=== PATIENT | female | born 1980 | race Caucasian/White ===

== ENCOUNTER 2020-03-20 15:03 | Outpatient (REF) | payer OTHER, SELFPAY ==
[2020-03-20 15:34] LABS: COVID-19 Test Negative (Negative)
== END 2020-03-20 15:04 | disposition home or self-care (01) ==
LOC: HO.EMPCOV 15:03
PROVIDERS: Visit Provider Internal Medicine
DX: Z20.828 Contact with and (suspected) exposure to other viral communicable diseases (principal)
CPT/HCPCS: 87635

== ENCOUNTER 2020-05-22 13:24 | Outpatient (REF) | payer OTHER, SELFPAY ==
[2020-05-23 09:47] LABS: C. trachomatis RNA TMA NOT DETECTED (NOT DETECTED); N. gonorrhoeae RNA TMA NOT DETECTED (NOT DETECTED)
[2020-05-23 12:03] LABS: BV Int Neg Control Negative (Negative); BV Int Pos Control Positive (Positive)
== END 2020-05-22 13:25 | disposition home or self-care (01) ==
LOC: HO.LAB 13:24
PROVIDERS: PCP Internal Medicine; Visit Provider Obstetrics & Gynecology
DX: N92.3 Ovulation bleeding (principal); R19.00 Intra-abdominal and pelvic swelling, mass and lump, unspecified site; Z11.3 Encounter for screening for infections with a predominantly sexual mode of transmission
CPT/HCPCS: 36415; 87480; 87491; 87510; 87591; 87660; 99212

== ENCOUNTER 2020-05-26 14:13 | Outpatient (REF) | payer OTHER, SELFPAY ==
--- NOTE | ~2020-05-26 | US_ITS ---
EXAMINATION: US PELVIS US TRANSVAGINAL CLINICAL INFORMATION: Intra-abdominal and pelvic swelling, mass or lump. COMPARISON: None TECHNIQUE: Transabdominal and transvaginal ultrasound the pelvis. FINDINGS: The uterus is retroverted and retroflexed measuring 4.7 x 4.3 x 6.8 cm. The uterus is heterogeneous. The endometrial thickness measures 1.25 cm. Right ovary measures 2.4 x 2.0 x 1.5 cm and volume 3.7 mL. No focal lesion seen. Left ovary measures 3.4 x 1.8 x 2.4 cm and volume 7.6 mL. There is a small corpus luteal cyst measuring 1.9 x 1.6 x 1.5 cm. There is a small amount of free fluid in the cul-de-sac. US/US pelvic complete IMPRESSION: Small corpus luteal cyst left ovary. Unremarkable right ovary. Small amount of free fluid in the cul-de-sac. The uterus is unremarkable.
--- NOTE | ~2020-05-26 | US_ITS ---
EXAMINATION: US PELVIS US TRANSVAGINAL CLINICAL INFORMATION: Intra-abdominal and pelvic swelling, mass or lump. COMPARISON: None TECHNIQUE: Transabdominal and transvaginal ultrasound the pelvis. FINDINGS: The uterus is retroverted and retroflexed measuring 4.7 x 4.3 x 6.8 cm. The uterus is heterogeneous. The endometrial thickness measures 1.25 cm. Right ovary measures 2.4 x 2.0 x 1.5 cm and volume 3.7 mL. No focal lesion seen. Left ovary measures 3.4 x 1.8 x 2.4 cm and volume 7.6 mL. There is a small corpus luteal cyst measuring 1.9 x 1.6 x 1.5 cm. There is a small amount of free fluid in the cul-de-sac. US/US transvaginal IMPRESSION: Small corpus luteal cyst left ovary. Unremarkable right ovary. Small amount of free fluid in the cul-de-sac. The uterus is unremarkable.
== END 2020-05-26 14:14 | disposition home or self-care (01) ==
LOC: HO.HMGCX 14:13
PROVIDERS: Visit Provider Obstetrics & Gynecology
DX: R19.00 Intra-abdominal and pelvic swelling, mass and lump, unspecified site (principal)
CPT/HCPCS: 76830; 76856

== ENCOUNTER 2020-09-28 10:06 | Outpatient (REF) | payer OTHER, SELFPAY ==
[2020-09-28 10:31] LABS: COVID-19 Test Negative (Negative)
== END 2020-09-28 10:07 | disposition home or self-care (01) ==
LOC: HO.EMPCOV 10:06
PROVIDERS: Visit Provider Internal Medicine
DX: Z20.822 Contact with and (suspected) exposure to COVID-19 (principal)
CPT/HCPCS: 36415; 87635; C9803

== ENCOUNTER 2020-10-14 16:25 | Outpatient (REF) | payer OTHER, SELFPAY ==
[2020-10-14 16:53] LABS: COVID-19 Test Negative (Negative)
== END 2020-10-14 16:26 | disposition home or self-care (01) ==
LOC: HO.LAB 16:25
PROVIDERS: Visit Provider Internal Medicine
DX: Z20.822 Contact with and (suspected) exposure to COVID-19 (principal)
CPT/HCPCS: 36415; 87635; C9803

== ENCOUNTER 2020-10-22 08:08 | Outpatient (REF) | payer OTHER, SELFPAY ==
[2020-10-25 04:21] LABS: HPV mRNA E6/E7 rflx Not Detected (Not Detected)
== END 2020-10-22 08:09 | disposition home or self-care (01) ==
LOC: HO.LAB 08:08
PROVIDERS: Visit Provider Advanced Practice Midwife
DX: Z01.419 Encounter for gynecological examination (general) (routine) without abnormal findings (principal); Z98.890 Other specified postprocedural states
CPT/HCPCS: 87624; 88142

== ENCOUNTER 2021-05-21 08:42 | Outpatient (REF) | payer OTHER, SELFPAY ==
[2021-05-21 16:23] LABS: CT PCR NOT DETECTED (Not Detect.); NG PCR NOT DETECTED (Not Detect.)
[2021-05-22 09:59] LABS: BV Int Neg Control Negative (Negative); BV Int Pos Control Positive (Positive)
== END 2021-05-21 08:43 | disposition home or self-care (01) ==
LOC: HO.LAB 08:42
PROVIDERS: Visit Provider Advanced Practice Midwife
DX: Z11.3 Encounter for screening for infections with a predominantly sexual mode of transmission (principal); Z20.2 Contact with and (suspected) exposure to infections with a predominantly sexual mode of transmission
CPT/HCPCS: 87480; 87491; 87510; 87591; 87660; 99212

== ENCOUNTER 2021-06-20 15:54 | Emergency (ER) | payer OTHER, SELFPAY ==
--- NOTE | ~2021-06-20 | US_ITS ---
EXAMINATION: US RETROPERITONEAL LIMITED (RENAL ONLY) CLINICAL INFORMATION: Flank pain, evaluate for hydronephrosis. COMPARISON: None TECHNIQUE: Real-time imaging by the tree shear operator FINDINGS: The right kidney is 10.9 x 4 x 5.8 cm. There is no hydronephrosis. Normal-appearing. The left kidney is 9.6 x 6.4 x 6.5 cm. Again no hydronephrosis or stone. Normal-appearing. US/US renal BI IMPRESSION: No evidence of hydronephrosis. No stone is seen
--- NOTE | ~2021-06-20 | US_ITS ---
EXAMINATION: US PELVIS CLINICAL INFORMATION: Right lower and left lower pelvic pain with question of ovarian torsion COMPARISON: Pelvic ultrasound 06/05/2020 TECHNIQUE: Ultrasound of the pelvis is performed using both transabdominal and transvaginal transducers along with Doppler. Transvaginal imaging is performed due to inadequate visualization transabdominally. FINDINGS: Uterus: The uterus is anteverted and measures 8.7 x 5.8 x 6.2 cm. The double wall endometrial thickness is 0.9 mm. The uterus is smooth in contour and has normal myometrial echogenicity. No visible fibroid. Adnexa: Both ovaries are visualized. There is normal color flow to the adnexa. There is no ovarian torsion. There is no pelvic ascites or fluid collection. Right ovary measures 2.8 x 1.6 x 1.7 cm. Left ovary measures 2.9 x 1.7 x 1.8 cm. US/US pelvic ovarian doppler IMPRESSION: Negative pelvic ultrasound exam. No evidence of ovarian torsion.
--- NOTE | ~2021-06-20 | US_ITS ---
EXAMINATION: US PELVIS CLINICAL INFORMATION: Right lower and left lower pelvic pain with question of ovarian torsion COMPARISON: Pelvic ultrasound 06/05/2020 TECHNIQUE: Ultrasound of the pelvis is performed using both transabdominal and transvaginal transducers along with Doppler. Transvaginal imaging is performed due to inadequate visualization transabdominally. FINDINGS: Uterus: The uterus is anteverted and measures 8.7 x 5.8 x 6.2 cm. The double wall endometrial thickness is 0.9 mm. The uterus is smooth in contour and has normal myometrial echogenicity. No visible fibroid. Adnexa: Both ovaries are visualized. There is normal color flow to the adnexa. There is no ovarian torsion. There is no pelvic ascites or fluid collection. Right ovary measures 2.8 x 1.6 x 1.7 cm. Left ovary measures 2.9 x 1.7 x 1.8 cm. US/US pelvic and transvaginal IMPRESSION: Negative pelvic ultrasound exam. No evidence of ovarian torsion.
[2021-06-20 17:51] VITALS: BP 124/80; PULSE 70; RESP 18; TEMP 36.3; O2SAT 100; BMI 26.9
[2021-06-20 18:31] LABS: Appearance Urine CLEAR; Color Urine YELLOW; Glucose Urine UA NEG (NEG); Leukocyte Esterase Urine NEG (NEG); Nitrite Urine NEG (NEG); PH 5.5 (5.0-8.0); Specific Gravity - Urine 1.015 (1.005-1.025); UACC Culture Trigger NO; Urine Blood TRACE (NEG); Urine Ketones NEG (NEG); Urine Protein NEG (NEG-TRACE)
[2021-06-20 19:06] LABS: Bacteria Urine TRACE /LPF; Mucus Urine TRACE /LPF; Squamous Epithelial Cell Urine 1+ /LPF; WBC Urine 0-2 /HPF (0-4)
[2021-06-20 19:31] VITALS: BP 126/79; PULSE 68; RESP 16; TEMP 36.9; O2SAT 100
--- NOTE | 2021-06-20 19:57 | ED.ABDPAIN ---
HPI - Abdominal Pain General Chief Complaint: Abdominal Pain Stated Complaint: lower abd pain Time Seen by Provider: 06/20/21 19:37 Source: patient Mode of arrival: ambulatory Limitations: no limitations History of Present Illness HPI narrative: 41-year-old female who presents emergency department for evaluation of abdominal pain. She states that yesterday in the morning after eating breakfast she developed pain in her stomach. She points to her epigastric area. She states that the pain was a constant, stabbing pain which was 10/10. The patient states that she went to [facility] and was seen in the emergency department. She states that she had blood work IV fluids and Tylenol with some improvement but she still had pain when she left the emergency department. She states that today at around 15:00 hours she developed pain in her lower abdomen. She describes the pain as a constant, contraction like pain which came on suddenly. The pain is 8/10. She states that the pain is a little more prominent in the right lower aspect of her abdomen it does radiate to her right flank area. She states that she had associated chills. She had nausea with no vomiting. She states that yesterday she had 4 loose diarrheal stools and had 2 loose diarrheal stools today. She denied vaginal discharge. She states that her last menstrual period was 1 month prior. The patient states that she had an appendectomy and cholecystectomy in the past. Related Data Home Medications Medication Instructions Recorded Confirmed cholecalciferol (vitamin D3) 25 25 mcg PO DAILY 05/22/20 mcg (1,000 unit) tablet propranolol 20 mg tablet 20 mg PO BID 05/22/20 Previous Rx's Medication Instructions Recorded vitamin with calcium 1 tab PO DAILY #30 tab 05/21/21 no.72-iron 27 mg-folic acid 1 mg tablet ( Vitamins Plus Low Iron) doxycycline hyclate 100 mg tablet 100 mg PO Q12H 14 Days #28 tab 06/20/21 metronidazole 500 mg tablet 500 mg PO BID 14 Days #28 tab 06/20/21 Allergies Allergy/AdvReac Type Severity Reaction Status Date / Time Penicillins Allergy Mild ITCHING Verified 06/20/21 17:54 promethazine [From Phenergan] Allergy Mild ITCHING, Verified 06/20/21 17:54 rash vancomycin [Vancomycin] Allergy Mild HIVES Verified 06/20/21 17:54 penicillin V Allergy Unknown hives, Verified 06/20/21 17:54 swelling Promethazine HCl Allergy Unknown hives Uncoded 06/20/21 17:54 Propylene Glycol Allergy Unknown severe acne Uncoded 06/20/21 17:54 Povidone Iodine Swabstick AdvReac Unknown rash Uncoded 06/20/21 17:54 Review of Systems Review of Systems Yes all other systems are reviewed and are negative [facility] Past Medical History [facility] Narrative: Past medical history: Hypertension. Past surgical history: Appendectomy, cholecystectomy, LEEP procedure. 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 She denies tobacco use. She denies alcohol use. She denies drug use. Medical History Abnormal Pap smear of cervix Hypertension Surgical History H/O LEEP History of cholecystectomy Family History Family History Maternal Grandfather Colon cancer Social History Social History Alcohol intake: never Advance Directives: No Patient : No Gender identity: Female Physical Exam ED Vital Signs: Vital Signs - 24 hr 06/20/21 17:51 06/20/21 19:31 06/20/21 23:27 Temperature 97.3 F 98.4 F 98.6 F Pulse Rate 70 68 75 Respiratory Rate 18 16 18 Blood Pressure 124/80 126/79 127/78 Pulse Oximetry 100 100 98 BMI result Body Mass Index 26.9 Const General: cooperative and no acute distress Orientation/consciousness: oriented to person and oriented to place Limitations: no limitations [facility] Head: Yes normal to inspection, Yes normocephalic and Yes atraumatic Ears: external ears normal General nose exam: Normal external nose present Face and sinus: Yes normal facial exam Mouth: Normal oral and palatal mucosa present Throat: Yes posterior oropharynx normal Eyes General: appearance normal, both eyes and all related structures Pupils: Equal, round and reactive pupils present Neck Neck: Yes normal visual inspection, Yes no lymphadenopathy, Yes trachea midline and Yes supple Chest Chest palpation & inspection: normal inspection of the chest and normal palpation of entire chest wall Resp Effort & Inspection: normal respiratory effort and able to speak in complete sentences Auscultation: clear to auscultation bilaterally Cardio Rate: regular rate Rhythm: regular rhythm Heart sounds: S1 normal heart sound present, S2 normal heart sound present and no murmurs GI Inspection: Yes normal to inspection Palpation (GI): Soft to palpation, Tenderness to palpation present (GI) in the LLQ (Moderate), in the RLQ (Moderate) and suprapubicly (Moderate) and no guarding Auscultation: normal bowel sounds General: Yes no CVA tenderness External Female Exam: normal external appearance Speculum Exam - Vagina: abnormal vaginal discharge (Thick, white) Speculum Exam - Cervix: normal appearance of the cervix, Cervical os closed, Abnormal cervical discharge present (Thick white) and Cervical tenderness present Bimanual exam- vagina & uterus: Cervical tenderness present, cervical motion tenderness (Moderate) and Uterine tenderness (Moderate) Bimanual Exam- Adnexa, other: tender (Moderate right, mild left) bilaterally Back/Spine/Pelvis Back: no CVA tenderness Skin General skin exam: no rashes or lesions noted Neuro General: oriented to person and oriented to place Cranial nerves: Yes CN's II-XII intact bilaterally and Yes Equal, round and reactive pupils present Cognition (Neuro): normal cognition Motor exam (neuro): 5/5 motor strength present throughout Extrem General: Yes normal to inspection Psych Appearance: grossly normal Speech and movement: Normal speech and movement present Affect: normal affect Attitude: cooperative Thought process: Normal thought process present Thought content: Normal thought content present Course Course Course Narrative: 41-year-old female who presents emergency department for evaluation of abdominal pain x2 days. The pain yesterday was located in her epigastric area, she was seen at [facility] in the emergency department treated with IV fluids and Tylenol with improvement of her symptoms but not complete resolution of her abdominal pain. At 15:00 hours today she developed a different abdominal pain in her lower abdomen. She has had associated chills, nausea and diarrheal stools. She has a history of an appendectomy and cholecystectomy. Vital signs were normal. Examination did reveal lower abdominal tenderness. Differential includes was not limited to ovarian cyst, pelvic inflammatory disease, ovarian cyst, kidney stone, UTI, PID. Laboratory evaluation was ordered. Patient will be treated with Zofran 4 mg IV, Toradol 15 mg IV and normal saline x1 L. 2334: Laboratory evaluation: WBC low 3900, AST elevated 33, beta-hCG less than 2, urinalysis negative Radiology evaluation: Pelvic and transvaginal ultrasound revealed no torsion, no ovarian cyst. Bilateral renal ultrasound revealed no hydronephrosis. The patient did get significant improvement with the above treatment. The patient's laboratory evaluation was unremarkable and her ultrasounds did not reveal a clear cause for her symptoms. The patient's pelvic exam however did reveal cervical motion tenderness, uterine tenderness and bilateral adnexal tenderness right greater than left. Patient does have an abnormal appearing discharges well. Clinically, I believe that the patient has pelvic inflammatory disease. She was treated with ceftriaxone 500 mg IM with lidocaine, doxycycline 100 mg orally and Flagyl 500 mg orally. She was given prescriptions for doxycycline and Flagyl for 14 days. She was advised to take Tylenol ibuprofen for pain. She will need to follow-up with her osteopathy doctor for re-evaluation in 10-14 days. MDM - Abdominal Pain Lab Data Result diagrams: 06/20/21 20:24 06/20/21 20:24 Labs: Lab Results 06/20/21 06/20/21 06/20/21 Range/Units 18:15 20:24 20:24 WBC 3.9 L (4.8-10.8) X10*3/uL RBC 4.57 (4.20-5.50) X10*6/uL Hgb 13.9 (12.0-16.0) g/dl Hct 41.4 (37.0-47.0) % MCV 90.6 (80.0-98.0) fL MCH 30.4 (27.0-33.0) pg MCHC 33.6 (31.0-35.0) g/dl RDW 12.9 (11.0-16.0) % Plt Count 184 (160-400) X10*3/uL MPV 9.8 (9.4-12.3) fL Immature Gran % (Auto) 0.5 H (0.0-0.4) % Neut % (Auto) 42.2 L (45-73) % Lymph % (Auto) 36.9 (20-40) % [place] % (Auto) 16.0 H (2-11) % Eos % (Auto) 3.9 (0-4) % Baso % (Auto) 0.5 (0-2) % Lymph # (Auto) 1.4 (1.2-4.9) X10*3/uL [place] # (Auto) 0.6 (0.1-1.2) X10*3/uL Eos # (Auto) 0.2 (0.0-0.4) X10*3/uL Baso # (Auto) 0.0 (0.0-0.2) X10*3/uL Abs Immat Gran (auto) 0.02 (0.00-0.03) X10*3/uL Absolute Neuts (auto) 1.6 L (2.0-8.3) x10*3/uL Absolute Nucleated RBC 0.000 (0.0-0.012) X10*3/uL Nucleated RBC % (auto) 0.0 (0.0-0.2) /100WBC Sodium 139 (135-145) mmol/L Potassium 3.9 (3.3-5.1) mmol/L Chloride 105 (96-108) mmol/L Carbon Dioxide 27 (22-29) mmol/L Anion Gap 11 L (12-20) BUN 5 L (9-16) mg/dL Creatinine 0.83 (0.5-1.4) mg/dL Estim Creat Clear Calc 94.6 Estimated GFR > 60 Random Glucose 89 (60-115) mg/dL Calcium 8.9 (8.4-10.2) mg/dL Total Bilirubin 0.3 (0.0-1.0) mg/dL AST 24 (5-31) U/L ALT 33 H (0-31) U/L Alkaline Phosphatase 62 (39-117) U/L Total Protein 7.2 (6.5-8.0) g/dL Albumin 4.0 (3.5-5.0) g/dL Lipase 25 (8-78) U/L Beta HCG, Quant mIU/mL Urine Color YELLOW Urine Appearance CLEAR Urine pH 5.5 (5.0-8.0) Ur Specific [place] 1.015 (1.005-1.025) Urine Protein NEG (NEG-TRACE) MG/DL Urine Glucose (UA) NEG (NEG) MG/DL Urine Ketones NEG (NEG) MG/DL Urine Blood TRACE (NEG) Urine Nitrite NEG (NEG) Ur Leukocyte Esterase NEG (NEG) Urine RBC 1-4 (0) /HPF Urine WBC 0-2 (0-4) /HPF Ur Squamous Epith Cells 1+ /LPF Urine Bacteria TRACE /LPF Urine Mucus TRACE /LPF 06/20/21 Range/Units 20:24 WBC (4.8-10.8) X10*3/uL RBC (4.20-5.50) X10*6/uL Hgb (12.0-16.0) g/dl Hct (37.0-47.0) % MCV (80.0-98.0) fL MCH (27.0-33.0) pg MCHC (31.0-35.0) g/dl RDW (11.0-16.0) % Plt Count (160-400) X10*3/uL MPV (9.4-12.3) fL Immature Gran % (Auto) (0.0-0.4) % Neut % (Auto) (45-73) % Lymph % (Auto) (20-40) % [place] % (Auto) (2-11) % Eos % (Auto) (0-4) % Baso % (Auto) (0-2) % Lymph # (Auto) (1.2-4.9) X10*3/uL [place] # (Auto) (0.1-1.2) X10*3/uL Eos # (Auto) (0.0-0.4) X10*3/uL Baso # (Auto) (0.0-0.2) X10*3/uL Abs Immat Gran (auto) (0.00-0.03) X10*3/uL Absolute Neuts (auto) (2.0-8.3) x10*3/uL Absolute Nucleated RBC (0.0-0.012) X10*3/uL Nucleated RBC % (auto) (0.0-0.2) /100WBC Sodium (135-145) mmol/L Potassium (3.3-5.1) mmol/L Chloride (96-108) mmol/L Carbon Dioxide (22-29) mmol/L Anion Gap (12-20) BUN (9-16) mg/dL Creatinine (0.5-1.4) mg/dL Estim Creat Clear Calc Estimated GFR Random Glucose (60-115) mg/dL Calcium (8.4-10.2) mg/dL Total Bilirubin (0.0-1.0) mg/dL AST (5-31) U/L ALT (0-31) U/L Alkaline Phosphatase (39-117) U/L Total Protein (6.5-8.0) g/dL Albumin (3.5-5.0) g/dL Lipase (8-78) U/L Beta HCG, Quant < 2 mIU/mL Urine Color Urine Appearance Urine pH (5.0-8.0) Ur Specific [place] (1.005-1.025) Urine Protein (NEG-TRACE) MG/DL Urine Glucose (UA) (NEG) MG/DL Urine Ketones (NEG) MG/DL Urine Blood (NEG) Urine Nitrite (NEG) Ur Leukocyte Esterase (NEG) Urine RBC (0) /HPF Urine WBC (0-4) /HPF Ur Squamous Epith Cells /LPF Urine Bacteria /LPF Urine Mucus /LPF Discharge Plan Discharge Clinical Impression: Acute pelvic inflammatory disease Patient Disposition: Home, Self-Care Additional Instructions: Pelvic inflammatory disease instructions: Your presentation and physical findings are consistent with pelvic inflammatory disease (PID). Approximately 30% of the time, pelvic inflammatory disease is caused by sexually transmitted diseases such as Trichomonas, gonorrhea or chlamydia. Approximately 70% of the time, pelvic inflammatory disease is caused by abnormal bacteria (anaerobic bacteria) in your vagina that can cause an infection Medications You received ceftriaxone 500 mg intramuscularly here in the emergency department Take doxycycline 100 mg, 1 pill twice a day for 14 days. Take metronidazole 500 mg, 1 pill twice a day for 14 days. These 3 antibiotics treat sexually transmitted diseases such as gonorrhea, chlamydia and Trichomonas as well as anaerobic bacteria that can cause pelvic inflammatory disease. Take ibuprofen 200 mg pills, 3 pills every 6 hours as needed for pain. Take Tylenol (acetaminophen) 500 mg pills, 2 pills every 4 to 6 hours as needed for pain. Follow-Up Follow-up with your gynecology in 10-14 days. Pending laboratory tests: The doctor that follows up will need to review the following results with you: Bacterial vaginosis testing Gonorrhea and chlamydia (cervical swab) Trichomonas testing You can also check these results on the patient portal. Return precautions: Please return to the emergency department if your symptoms get worse if your pain does not go away in 24-48 hours or if you develop any symptoms that are concerning to you. Please see work note Prescriptions: New metronidazole 500 mg tablet 500 mg PO BID 14 Days Qty: 28 0RF doxycycline hyclate 100 mg tablet 100 mg PO Q12H 14 Days Qty: 28 0RF No Action cholecalciferol (vitamin D3) 25 mcg (1,000 unit) tablet 25 mcg PO DAILY 0RF propranolol 20 mg tablet 20 mg PO BID 0RF Vitamin Plus Low Iron 27 mg iron- 1 mg tablet 1 tab PO DAILY Qty: 30 11RF Stand Alone Forms: Work/School Release
[2021-06-20 20:28] LABS: MANUAL DIFF FLAG NO
[2021-06-20] MEDS: Ketorolac Tromethamine 15 MG/ML VIAL IVPUSH (20:28)
[2021-06-20 20:29] LABS: Basophils Percent Auto 0.5 % (0-2); Eosinophils Absolute Auto 0.2 X10*3/uL (0.0-0.4); Eosinophils Percent Auto 3.9 % (0-4); Hematocrit 41.4 % (37.0-47.0); Hemoglobin 13.9 g/dl (12.0-16.0); Imm Gran Abs Auto 0.02 X10*3/uL (0.00-0.03); Imm Gran Pct Auto 0.5 % (0.0-0.4); Lymphocytes Absolute Auto 1.4 X10*3/uL (1.2-4.9); Lymphocytes Percent Auto 36.9 % (20-40); Mean Corpuscular HGB Conc 33.6 g/dl (31.0-35.0); Mean Corpuscular Hemoglobin 30.4 pg (27.0-33.0); Mean Corpuscular Volume 90.6 fL (80.0-98.0); Mean Platelet Volume 9.8 fL (9.4-12.3); Monocytes Absolute Auto 0.6 X10*3/uL (0.1-1.2); Neutrophils Absolute Auto 1.6 x10*3/uL (2.0-8.3); Neutrophils Percent Auto 42.2 % (45-73); Platelet Count 184 X10*3/uL (160-400); Red Blood Count 4.57 X10*6/uL (4.20-5.50); Red Cell Distribution Width 12.9 % (11.0-16.0); White Blood Count 3.9 X10*3/uL (4.8-10.8)
[2021-06-20] MEDS: 0.9 % Sodium Chloride 1,000 ML 999 ML IV (20:29)
[2021-06-20 20:46] LABS: Alanine Aminotransferase 33 U/L (0-31); Alkaline Phosphatase 62 U/L (39-117); Anion Gap 11 (12-20); Aspartate Amino Transferase 24 U/L (5-31); Bilirubin Total 0.3 mg/dL (0.0-1.0); Blood Urea Nitrogen 5 mg/dL (9-16); Calcium 8.9 mg/dL (8.4-10.2); Carbon Dioxide 27 mmol/L (22-29); Chloride 105 mmol/L (96-108); Creatinine Clr Calc Pharmacy 94.6; Estimated Glomerular Filt Rate > 60; Glucose Random 89 mg/dL (60-115); Lipase 25 U/L (8-78); Potassium 3.9 mmol/L (3.3-5.1); Sodium 139 mmol/L (135-145); Total Protein 7.2 g/dL (6.5-8.0)
[2021-06-20 20:49] LABS: HCG Quantitative < 2 mIU/mL
[2021-06-20 23:27] VITALS: BP 127/78; PULSE 75; RESP 18; TEMP 37; O2SAT 98
[2021-06-21] MEDS: cefTRIAXone sodium 500 MG, Lidocaine HCl 1 % MPF 1 ML IM (00:11)
--- NOTE | 2021-06-21 00:15 | PC.NURSE ---
Pt medicated per MAY Pt tolerated well No reactions noted Pt refused PO antibiotics. aware. Per MD, pt will get IM shot but will start PO antibiotics tomorrow at home
[2021-06-21 01:23] LABS: CT PCR NOT DETECTED (Not Detect.); NG PCR NOT DETECTED (Not Detect.)
[2021-06-21 10:03] LABS: BV Int Neg Control Negative (Negative); BV Int Pos Control Positive (Positive)
== END 2021-06-21 00:16 | disposition home or self-care (01) ==
PROVIDERS: Emergency Provider Emergency Medicine Emergency Medical Services
DX: N73.0 Acute parametritis and pelvic cellulitis (principal); R10.2 Pelvic and perineal pain; Z79.899 Other long term (current) drug therapy
CPT/HCPCS: 36415; 76775; 76830; 76856; 80053; 81001; 83690; 84702; 85025; 87480; 87491; 87510; 87591; 87660; 93975; 96365; 96366; 99284; J0696; J1885

== ENCOUNTER 2021-11-17 07:37 | Outpatient (REF) | payer OTHER, SELFPAY ==
[2021-11-17 08:05] LABS: COVID-19 Test Negative (Negative); IDNOW Serial# 9DB6401D
== END 2021-11-17 07:38 | disposition home or self-care (01) ==
LOC: HO.LAB 07:37
PROVIDERS: Visit Provider Internal Medicine
DX: Z20.822 Contact with and (suspected) exposure to COVID-19 (principal)
CPT/HCPCS: 87635; C9803

== ENCOUNTER 2021-11-24 08:58 | Outpatient (REF) | payer OTHER, SELFPAY ==
--- NOTE | ~2021-11-24 | MM_ITS ---
EXAMINATION: MM SCREENING DIGITAL BREAST TOMOSYNTHESIS, BILATERAL CLINICAL INFORMATION: Screening. Asymptomatic. The lifetime risk of breast cancer based on the Tyrer-Cuzick Model is 9%. COMPARISON: Mammography: 06/15/2015 (baseline). TECHNIQUE: Digital breast tomosynthesis is performed in both the craniocaudal and mediolateral oblique views along with computer-aided detection (CAD). Synthesized 2D images are generated from the tomosynthesis. FINDINGS: There are scattered areas of fibroglandular density (ACR BI-RADS breast composition Category b). Parenchymal pattern is similar to prior baseline exam. There is no significant mass or architectural abnormality or abnormal calcifications. A small smooth nodule central 8:30 right breast is similar to the prior exam. The axilla and skin contours are unremarkable. MM/MM tomosynthesis screening BI IMPRESSION: No mammographic evidence of malignancy. ASSESSMENT: BI-RADS 2: Benign RECOMMENDATION: Routine annual mammography screening. This patient's information was entered into a reminder system with a target due date for their next mammogram.
== END 2021-11-24 08:59 | disposition home or self-care (01) ==
LOC: HO.MAMMO 08:58
PROVIDERS: Visit Provider Advanced Practice Midwife
DX: Z12.31 Encounter for screening mammogram for malignant neoplasm of breast (principal)
CPT/HCPCS: 77063; 77067

== ENCOUNTER 2021-11-25 14:20 | Outpatient (REF) | payer OTHER, SELFPAY ==
[2021-11-25 14:46] LABS: COVID-19 Test Negative (Negative); IDNOW Serial# 55D5AD1C
== END 2021-11-25 14:21 | disposition home or self-care (01) ==
LOC: HO.LAB 14:20
PROVIDERS: Visit Provider Internal Medicine
DX: Z20.822 Contact with and (suspected) exposure to COVID-19 (principal)
CPT/HCPCS: 87635; C9803

== ENCOUNTER 2021-12-17 11:30 | Outpatient (REF) | payer OTHER, SELFPAY ==
[2021-12-17 12:00] LABS: COVID-19 Test Positive (Negative); IDNOW Serial# 9DB6401D
== END 2021-12-17 11:31 | disposition home or self-care (01) ==
LOC: HO.LAB 11:30
PROVIDERS: Visit Provider Internal Medicine
DX: Z20.822 Contact with and (suspected) exposure to COVID-19 (principal)
CPT/HCPCS: 87635; C9803

== ENCOUNTER 2021-12-21 14:44 | Outpatient (REF) | payer OTHER, SELFPAY ==
[2021-12-21 15:09] LABS: COVID-19 Test Positive (Negative)
== END 2021-12-21 14:45 | disposition home or self-care (01) ==
LOC: HO.LAB 14:44
PROVIDERS: Visit Provider Internal Medicine
DX: Z20.822 Contact with and (suspected) exposure to COVID-19 (principal)
CPT/HCPCS: 87635; C9803

== ENCOUNTER 2021-12-30 07:51 | Outpatient (REF) | payer OTHER, SELFPAY ==
[2021-12-30 08:08] LABS: COVID-19 Test Positive (Negative); IDNOW Serial# 16C4AD1C
== END 2021-12-30 07:52 | disposition home or self-care (01) ==
LOC: HO.LAB 07:51
PROVIDERS: Visit Provider Internal Medicine
DX: Z20.822 Contact with and (suspected) exposure to COVID-19 (principal)
CPT/HCPCS: 87635; C9803

== ENCOUNTER 2022-01-12 12:42 | Outpatient (REF) | payer OTHER, SELFPAY ==
[2022-01-12 13:02] LABS: Anion Gap 16 (12-20); Blood Urea Nitrogen 13 mg/dL (9-16); Calcium 9.5 mg/dL (8.4-10.2); Carbon Dioxide 26 mmol/L (22-29); Chloride 101 mmol/L (96-108); Cholesterol 195 mg/dL; Estimated Glomerular Filt Rate > 60; Glucose Random 75 mg/dL (60-115); HDL Cholesterol 50 mg/dL; LDL Cholesterol Calculated 115 mg/dl; Potassium 3.8 mmol/L (3.3-5.1); Sodium 139 mmol/L (135-145); Triglycerides 150 mg/dL
== END 2022-01-12 12:43 | disposition home or self-care (01) ==
LOC: HO.LAB 12:42
PROVIDERS: Internal Medicine; Visit Provider Physician Assistant
DX: E78.1 Pure hyperglyceridemia (principal); I10 Essential (primary) hypertension
CPT/HCPCS: 36415; 80048; 80061

== ENCOUNTER 2022-02-02 15:01 | Outpatient (RCR) | payer OTHER, SELFPAY | END 2022-03-29 10:43 | disposition home or self-care (01) | LOC: HO.PT 15:01 | PROVIDERS: PCP Internal Medicine Hematology & Oncology; Visit Provider Advanced Practice Midwife | DX: N39.3 Stress incontinence (female) (male) (principal) | CPT/HCPCS: 97112; 97161 ==

== ENCOUNTER → 2022-03-02 12:07 | Outpatient (BNVA) | payer OTHER, SELFPAY | PROVIDERS: PCP Internal Medicine Hematology & Oncology; Visit Provider Physician Assistant Medical | DX: Z13.89 Encounter for screening for other disorder (principal) | CPT/HCPCS: 36415; 84450; 84460; 86706; 86803; 87389; 99203 ==

== ENCOUNTER 2022-08-18 10:23 | Outpatient (REF) | payer OTHER, SELFPAY ==
[2022-08-18 13:12] LABS: Thyroid Stimulating Hormone 1.26 uIU/mL (0.32-4.0)
[2022-08-18 15:22] LABS: CT PCR NOT DETECTED (Not Detect.); NG PCR NOT DETECTED (Not Detect.)
[2022-08-19 09:20] LABS: BV Int Neg Control Negative (Negative); BV Int Pos Control Positive (Positive)
== END 2022-08-18 10:24 | disposition home or self-care (01) ==
LOC: HO.LAB 10:23
PROVIDERS: PCP Internal Medicine Hematology & Oncology; Visit Provider Advanced Practice Midwife
DX: N92.6 Irregular menstruation, unspecified (principal); R10.2 Pelvic and perineal pain; N94.89 Other specified conditions associated with female genital organs and menstrual cycle
CPT/HCPCS: 0353U; 81003; 81025; 84443; 87480; 87510; 87660; 99212

== ENCOUNTER 2022-08-18 10:47 | Outpatient (REF) | payer SELFPAY | END 2022-08-18 10:48 | disposition home or self-care (01) | LOC: HO.LNP 10:47 | PROVIDERS: Visit Provider Advanced Practice Midwife | DX: Z13.89 Encounter for screening for other disorder (principal) ==

== ENCOUNTER 2022-08-18 11:12 | Outpatient (REF) | payer OTHER, SELFPAY ==
--- NOTE | ~2022-08-18 | US_ITS ---
EXAMINATION: US PELVIS TRANSVAGINAL CLINICAL INFORMATION: Pelvic and perineal pain COMPARISON: June 20, 2021 TECHNIQUE: Transcutaneous and transvaginal pelvic ultrasound. Transvaginal scanning was performed after voiding to better evaluate the endometrium and adnexa. FINDINGS: The uterus measures 8.3 x 5.0 x 5.1 cm. The uterus is retroverted. There are a few calcifications and small nabothian cysts seen within the cervix. The uterine contour is smooth. The endometrium measures 1.5 cm. No focal abnormalities within the myometrium. The right ovary measures approximately 2.9 x 1.8 x 2.0 cm. The calculated right ovarian volume is approximately 5.5 mL. No abnormal right adnexal findings. Normal vascularity. The left ovary measures 2.4 x 1.7 x 1.3 cm. The calculated left ovarian volume is approximately 2.8 mL. No abnormal left adnexal findings. Normal vascularity. No significant free pelvic fluid. US/US pelvic and transvaginal IMPRESSION: No significant pelvic abnormality appreciated. Prominent endometrium at 1.5 cm in thickness.
== END 2022-08-18 11:13 | disposition home or self-care (01) ==
LOC: HO.US 11:12
PROVIDERS: Visit Provider Advanced Practice Midwife
DX: R10.2 Pelvic and perineal pain (principal)
CPT/HCPCS: 76830; 76856

== ENCOUNTER → 2022-09-07 10:20 | Outpatient (BNVA) | payer OTHER, SELFPAY | PROVIDERS: PCP Internal Medicine Hematology & Oncology; Visit Provider Advanced Practice Midwife | DX: Z71.2 Person consulting for explanation of examination or test findings (principal); N92.6 Irregular menstruation, unspecified; N90.89 Other specified noninflammatory disorders of vulva and perineum; R10.2 Pelvic and perineal pain | CPT/HCPCS: 99212 ==

== ENCOUNTER 2022-09-13 10:33 | Outpatient (REF) | payer OTHER, SELFPAY ==
[2022-09-13 11:06] LABS: Cholesterol 188 mg/dL; HDL Cholesterol 54 mg/dL; LDL Cholesterol Calculated 117 mg/dl; Triglycerides 88 mg/dL
== END 2022-09-13 10:34 | disposition home or self-care (01) ==
LOC: HO.LNP 10:33
PROVIDERS: Visit Provider Internal Medicine
DX: E78.1 Pure hyperglyceridemia (principal)
CPT/HCPCS: 80061

== ENCOUNTER 2022-10-20 14:56 | Emergency (ER) | payer OTHER, SELFPAY ==
--- NOTE | ~2022-10-20 | CT_ITS ---
EXAMINATION: CT HEAD WITHOUT CONTRAST CLINICAL INFORMATION: Headache, dizziness, loss of balance COMPARISON: None available. TECHNIQUE: Contiguous axial imaging was performed from the skull base to vertex without intravenous administration of contrast. This CT examination was performed using dose optimization techniques as appropriate, variously including the following: *Automated exposure control *Adjustment of mA and/or kV according to patient size (this includes techniques or standardized protocols for targeted exams where dose is matched to indication/reason for exam; i.e. extremities or head) *Use of iterative reconstruction technique DLP: 561 mGy-cm FINDINGS: CT examination shows the ventricles and sulci are normal in size and configuration. No acute hemorrhage, mass effect or shift is evident. In the posterior fossa, the brainstem, cerebellum and fourth ventricle image normally. Barnes-white differentiation is maintained. The bony calvarium is intact. The orbits and globes are unremarkable. The mastoid air cells and paranasal sinuses are well pneumatized and clear. CT/CT head/brain wo IV con IMPRESSION: No acute intracranial pathology.
[2022-10-20 15:01] VITALS: BP 143/96; PULSE 78; RESP 18; TEMP 36.6; O2SAT 100; BMI 25.5
[2022-10-20 15:05] LABS: Glucose, Whole Blood 79 mg/dL (60-115)
--- NOTE | 2022-10-20 15:47 | ECG_ITS ---
Test Reason : off balance Blood Pressure : / mmHG Vent. Rate : 065 BPM Atrial Rate : 065 BPM P-R Int : 110 ms QRS Dur : 084 ms QT Int : 380 ms P-R-T Axes : 056 056 050 degrees QTc Int : 395 ms Sinus rhythm with short MA Otherwise normal ECG When compared with ECG of 03-JUN-2019 17:41, No significant change was found Referred By: Christa Torres Electronically Signed By:ESTELA KRAMER
[2022-10-20 16:20] LABS: MANUAL DIFF FLAG NO
[2022-10-20 16:29] LABS: Basophils Percent Auto 0.5 % (0-2); Eosinophils Absolute Auto 0.1 X10*3/uL (0.0-0.4); Eosinophils Percent Auto 1.8 % (0-4); Hematocrit 43.1 % (37.0-47.0); Hemoglobin 14.3 g/dl (12.0-16.0); Imm Gran Abs Auto 0.02 X10*3/uL (0.00-0.03); Imm Gran Pct Auto 0.3 % (0.0-0.4); Lymphocytes Absolute Auto 1.7 X10*3/uL (1.2-4.9); Lymphocytes Percent Auto 27.8 % (20-40); Mean Corpuscular HGB Conc 33.2 g/dl (31.0-35.0); Mean Corpuscular Hemoglobin 29.5 pg (27.0-33.0); Mean Platelet Volume 10.2 fL (9.4-12.3); Monocytes Absolute Auto 0.4 X10*3/uL (0.1-1.2); Monocytes Percent Auto 6.8 % (2-11); Neutrophils Absolute Auto 3.9 x10*3/uL (2.0-8.3); Neutrophils Percent Auto 62.8 % (45-73); Platelet Count 191 X10*3/uL (160-400); Red Blood Count 4.84 X10*6/uL (4.20-5.50); Red Cell Distribution Width 12.6 % (11.0-16.0); White Blood Count 6.2 X10*3/uL (4.8-10.8)
--- NOTE | 2022-10-20 16:47 | ED.DIZZY ---
HPI - Dizziness General Chief Complaint: Dizziness Stated Complaint: check sugar? Time Seen by Provider: 10/20/22 15:11 Source: patient, RN notes reviewed and old records reviewed Mode of arrival: ambulatory History of Present Illness HPI Narrative: 42-year-old female with no significant past medical history presenting to the ED from work complaining of headache, fatigue, & feeling lightheaded/off balance since 11:00AM. Admits lightheadedness/feeling off balance is elicited with position changes, resolved at rest. Took Tylenol around 1PM with headache resolution, denies headache at present. Denies vision change/loss, nausea/vomiting, CP/SOB, weakness, numbness/tingling, neck/back pain MD elicited complaint: difficulty walking Related Data Home Medications Medication Instructions Recorded Confirmed cholecalciferol (vitamin D3) 25 25 mcg PO DAILY 05/22/20 mcg (1,000 unit) tablet Previous Rx's Medication Instructions Recorded valacyclovir 500 mg tablet 500 mg PO BID PRN antiviral 3 days 12/17/21 (Valtrex) #30 tabs azithromycin 250 mg tablet See Rx Instructions PO .COMPLEX #6 10/20/22 tabs Allergies Allergy/AdvReac Type Severity Reaction Status Date / Time Penicillins Allergy Mild ITCHING Verified 09/07/22 10:23 promethazine [From Phenergan] Allergy Mild ITCHING, Verified 09/07/22 10:23 rash vancomycin [Vancomycin] Allergy Mild HIVES Verified 09/07/22 10:23 penicillin V Allergy Unknown hives, Verified 09/07/22 10:23 swelling Promethazine HCl Allergy Unknown hives Uncoded 06/20/21 17:54 Propylene Glycol Allergy Unknown severe acne Uncoded 06/20/21 17:54 Povidone Iodine Swabstick AdvReac Unknown rash Uncoded 06/20/21 17:54 Review of Systems Review of Systems: Constitutional: No Fever, No Chills, + Fatigue, + Malaise ENT/Mouth: No Ear Pain, No Hoarseness, No sore throat, No Rhinorrhea, No Swallowing Difficulty Eyes: No Eye Pain, No Swelling, No Redness, No Vision Changes Cardiovascular: No Chest Pain, No SOB, No Edema, No Palpitations Respiratory: No Cough, No Sputum, No Dyspnea Gastrointestinal: No Nausea, No Vomiting, No Diarrhea, No Constipation, No Abdominal pain Genitourinary:No Dysuria, No Urinary Frequency, No Hematuria, No Flank Pain Musculoskeletal: No joint pain, No Myalgias, No Joint Swelling Skin: No Skin Lesions, No rash Neuro: No Weakness, No Numbness, No Paresthesias, No Loss of Consciousness, + lightheaded/off balance, + Headache Yes all other systems are reviewed and are negative Constitutional: Constitutional: Reports as per HPI Neurologic: Denies Abnormal speech present [facility] Past Medical History Attestation statement: The following information was validated with the patient. Source: old records reviewed Medical History Abnormal Pap smear of cervix Hypertension Surgical History H/O LEEP History of cholecystectomy Family History Family History Maternal Grandfather Colon cancer Social History Social History Alcohol intake: never Advance Directives: No Advance Directives Information Provided: No Gender identity: Female Physical Exam Vital Signs: Vital Signs: Last Vital Signs Temp 97.8 F 10/20/22 15:01 Pulse 72 10/20/22 17:47 Resp 18 10/20/22 15:01 BP 137/88 10/20/22 17:47 Pulse Ox 100 10/20/22 15:01 BMI result Body Mass Index 25.5 Const: General: cooperative, healthy appearing, no acute distress, alert and awake Orientation/consciousness: patient oriented x3 Limitations: no limitations HEENT: Head: Yes normal to inspection and Yes atraumatic Ears: hearing grossly normal bilaterally, external ears normal, mastoids normal and TM abnormal bulging on the right (mild) and wth effusion (right) General nose exam: Normal external nose present Face and sinus: Yes normal facial exam Throat: Yes posterior oropharynx normal, Yes tonsils normal, Yes uvula midline, No peritonsillar mass, No uvula laterally displaced and No uvular edema Eyes: General: appearance normal, both eyes and all related structures Pupils: Equal, round and reactive pupils present EOM: EOMs intact bilaterally Neck: Neck: Yes normal visual inspection and Yes no meningeal signs Resp: Effort & Inspection: normal respiratory effort and no respiratory distress Auscultation: clear to auscultation bilaterally Cardio: Rate: regular rate Heart sounds: S1 normal heart sound present and S2 normal heart sound present GI: Inspection: Yes normal to inspection Palpation (GI): Soft to palpation, nontender, no guarding and not rigid Skin: Rashes: no rashes Wounds: no wounds Neuro: General: patient oriented x3, gait normal (no ataxia), tone normal, moves all extremities, no meningeal signs, no focal motor deficits and CN's II-XI intact bilaterally Cranial nerves: Yes CN's II-XII intact bilaterally, Yes Equal, round and reactive pupils present and Yes Bilaterally intact EOM present Cognition (Neuro): normal cognition Speech: No Abnormal speech present Gait exam (Neuro): Normal gait present Motor exam (neuro): 5/5 motor strength present throughout, Pronator motor function not present, no tremor noted and no asterixis Coordination: [id number] test normal Romberg Test: Negative Extrem: General: Yes normal to inspection Course Course Course Narrative: -[id number]--no leukocytosis. Labs otherwise reassuring CT head/brain wo IV con IMPRESSION: No acute intracranial pathology. -orthostatic vital signs negative. -UA negative Results discussed with patient including worrisome signs and symptoms and strict return precautions, and when to return to the emergency department. They verbalized understanding and feel safe for discharge at this time. Medical Decision Making Medical Decision Making [facility] Narrative: 42-year-old female with no significant past medical history presenting to the ED from work complaining of headache, fatigue, & feeling lightheaded/off balance since 11:00AM. On exam vital signs stable, NAD, nontoxic appearing, no focal neuro deficits, ambulating with steady gait no ataxia, right TM with small effusion and bulging. Concern for viral illness vs otitis vs BPPV vs dehydration/metabolic abnormalities or orthostasis. Lower suspicion for CVA/TIA, PE, ACS Plan: EKG, labs, UA, head CT, orthostatics, re-evaluate Please refer to course for remaining clinical decision making, interpretation of labs/imaging results, and discussions with consultants and/or family members. Differential Diagnosis Differential Diagnoses: The differential diagnosis associated with the presentation includes As above Admission/Observation Consideration of admission/observation: Escalation of care including admission/observation considered Lab Data [facility] Lab Attestation statement: I reviewed the patient's lab results. 10/20/22 16:10 10/20/22 16:10 Labs: Lab Results 10/20/22 10/20/22 10/20/22 Range/Units 15:00 16:10 16:10 WBC 6.2 (4.8-10.8) X10*3/uL RBC 4.84 (4.20-5.50) X10*6/uL Hgb 14.3 (12.0-16.0) g/dl Hct 43.1 (37.0-47.0) % MCV 89.0 (80.0-98.0) fL MCH 29.5 (27.0-33.0) pg MCHC 33.2 (31.0-35.0) g/dl RDW 12.6 (11.0-16.0) % Plt Count 191 (160-400) X10*3/uL MPV 10.2 (9.4-12.3) fL Immature Gran % (Auto) 0.3 (0.0-0.4) % Neut % (Auto) 62.8 (45-73) % Lymph % (Auto) 27.8 (20-40) % [place] % (Auto) 6.8 (2-11) % Eos % (Auto) 1.8 (0-4) % Baso % (Auto) 0.5 (0-2) % Lymph # (Auto) 1.7 (1.2-4.9) X10*3/uL [place] # (Auto) 0.4 (0.1-1.2) X10*3/uL Eos # (Auto) 0.1 (0.0-0.4) X10*3/uL Baso # (Auto) 0.0 (0.0-0.2) X10*3/uL Abs Immat Gran (auto) 0.02 (0.00-0.03) X10*3/uL Absolute Neuts (auto) 3.9 (2.0-8.3) x10*3/uL Absolute Nucleated RBC 0.000 (0.0-0.012) X10*3/uL Nucleated RBC % (auto) 0.0 (0.0-0.2) /100WBC PT 11.9 (11.1-13.3) SEC INR 1.0 (0.9-1.1) Sodium (135-145) mmol/L Potassium (3.3-5.1) mmol/L Chloride (96-108) mmol/L Carbon Dioxide (22-29) mmol/L Anion Gap (12-20) BUN (9-16) mg/dL Creatinine (0.5-1.4) mg/dL Estim Creat Clear Calc Estimated GFR POC Glucose 79 (60-115) mg/dL Random Glucose (60-115) mg/dL Calcium (8.4-10.2) mg/dL Magnesium (1.6-2.6) mg/dL Total Bilirubin (0.0-1.0) mg/dL Direct Bilirubin (0.0-0.5) mg/dL AST (5-31) U/L ALT (0-31) U/L Alkaline Phosphatase (39-117) U/L Total Protein (6.5-8.0) g/dL Albumin (3.5-5.0) g/dL Urine Color Urine Appearance Urine pH (5.0-9.0) Ur Specific [place] (1.005-1.025) Urine Protein (Neg-Trace) mg/dL Urine Glucose (UA) (Negative) mg/dL Urine Ketones (Negative) mg/dL Urine Blood (Negative) Urine Nitrite (Negative) Ur Leukocyte Esterase (Negative) Urine Test (NEGATIVE) 10/20/22 10/20/22 10/20/22 Range/Units 16:10 17:26 17:26 WBC (4.8-10.8) X10*3/uL RBC (4.20-5.50) X10*6/uL Hgb (12.0-16.0) g/dl Hct (37.0-47.0) % MCV (80.0-98.0) fL MCH (27.0-33.0) pg MCHC (31.0-35.0) g/dl RDW (11.0-16.0) % Plt Count (160-400) X10*3/uL MPV (9.4-12.3) fL Immature Gran % (Auto) (0.0-0.4) % Neut % (Auto) (45-73) % Lymph % (Auto) (20-40) % [place] % (Auto) (2-11) % Eos % (Auto) (0-4) % Baso % (Auto) (0-2) % Lymph # (Auto) (1.2-4.9) X10*3/uL [place] # (Auto) (0.1-1.2) X10*3/uL Eos # (Auto) (0.0-0.4) X10*3/uL Baso # (Auto) (0.0-0.2) X10*3/uL Abs Immat Gran (auto) (0.00-0.03) X10*3/uL Absolute Neuts (auto) (2.0-8.3) x10*3/uL Absolute Nucleated RBC (0.0-0.012) X10*3/uL Nucleated RBC % (auto) (0.0-0.2) /100WBC PT (11.1-13.3) SEC INR (0.9-1.1) Sodium 139 (135-145) mmol/L Potassium 4.1 (3.3-5.1) mmol/L Chloride 104 (96-108) mmol/L Carbon Dioxide 24 (22-29) mmol/L Anion Gap 15 (12-20) BUN 10 (9-16) mg/dL Creatinine 0.77 (0.5-1.4) mg/dL Estim Creat Clear Calc 98.4 Estimated GFR > 60 POC Glucose (60-115) mg/dL Random Glucose 92 (60-115) mg/dL Calcium 10.0 (8.4-10.2) mg/dL Magnesium 2.3 (1.6-2.6) mg/dL Total Bilirubin 0.4 (0.0-1.0) mg/dL Direct Bilirubin 0.1 (0.0-0.5) mg/dL AST 20 (5-31) U/L ALT 20 (0-31) U/L Alkaline Phosphatase 63 (39-117) U/L Total Protein 8.3 H (6.5-8.0) g/dL Albumin 4.5 (3.5-5.0) g/dL Urine Color Yellow Urine Appearance Clear Urine pH 6.5 (5.0-9.0) Ur Specific [place] <= 1.005 (1.005-1.025) Urine Protein Negative (Neg-Trace) mg/dL Urine Glucose (UA) Negative (Negative) mg/dL Urine Ketones Negative (Negative) mg/dL Urine Blood Negative (Negative) Urine Nitrite Negative (Negative) Ur Leukocyte Esterase Negative (Negative) Urine Test NEGATIVE (NEGATIVE) 10/20/22 Range/Units 17:43 WBC (4.8-10.8) X10*3/uL RBC (4.20-5.50) X10*6/uL Hgb (12.0-16.0) g/dl Hct (37.0-47.0) % MCV (80.0-98.0) fL MCH (27.0-33.0) pg MCHC (31.0-35.0) g/dl RDW (11.0-16.0) % Plt Count (160-400) X10*3/uL MPV (9.4-12.3) fL Immature Gran % (Auto) (0.0-0.4) % Neut % (Auto) (45-73) % Lymph % (Auto) (20-40) % [place] % (Auto) (2-11) % Eos % (Auto) (0-4) % Baso % (Auto) (0-2) % Lymph # (Auto) (1.2-4.9) X10*3/uL [place] # (Auto) (0.1-1.2) X10*3/uL Eos # (Auto) (0.0-0.4) X10*3/uL Baso # (Auto) (0.0-0.2) X10*3/uL Abs Immat Gran (auto) (0.00-0.03) X10*3/uL Absolute Neuts (auto) (2.0-8.3) x10*3/uL Absolute Nucleated RBC (0.0-0.012) X10*3/uL Nucleated RBC % (auto) (0.0-0.2) /100WBC PT (11.1-13.3) SEC INR (0.9-1.1) Sodium (135-145) mmol/L Potassium (3.3-5.1) mmol/L Chloride (96-108) mmol/L Carbon Dioxide (22-29) mmol/L Anion Gap (12-20) BUN (9-16) mg/dL Creatinine (0.5-1.4) mg/dL Estim Creat Clear Calc Estimated GFR POC Glucose 99 (60-115) mg/dL Random Glucose (60-115) mg/dL Calcium (8.4-10.2) mg/dL Magnesium (1.6-2.6) mg/dL Total Bilirubin (0.0-1.0) mg/dL Direct Bilirubin (0.0-0.5) mg/dL AST (5-31) U/L ALT (0-31) U/L Alkaline Phosphatase (39-117) U/L Total Protein (6.5-8.0) g/dL Albumin (3.5-5.0) g/dL Urine Color Urine Appearance Urine pH (5.0-9.0) Ur Specific [place] (1.005-1.025) Urine Protein (Neg-Trace) mg/dL Urine Glucose (UA) (Negative) mg/dL Urine Ketones (Negative) mg/dL Urine Blood (Negative) Urine Nitrite (Negative) Ur Leukocyte Esterase (Negative) Urine Test (NEGATIVE) Independent Interpretation I performed an independent interpretation of an: EKG Radiology Impression Discussion of test interpretation with radiology: I have reviewed the radiologist's reading. External Record Review External record reviewed: Inpatient record, Office record, Outpatient record, Prior outpatient labs, Prior outpatient radiology, Primary care record and Outside ED record Tests considered The following testing was considered but not selected: As above Discharge Plan Discharge Clinical Impression: Otitis media, Fatigue, Dizziness Patient Disposition: Home, Self-Care Instructions: Ear Infection (ED), Fatigue (ED) Additional Instructions: Your blood work and head CT were reassuring You have a early right ear infection, Azithromycin as antibiotic please take as prescribed Please stay hydrated, change positions slowly Have close follow-up with her doctor If symptoms persist or worsen or recur at rest return to the ED Prescriptions: New azithromycin 250 mg tablet See Rx Instructions .ROUTE .COMPLEX Qty: 6 0RF Rx Instructions: take 500 mg today (day 1), then 250 mg for 4 days (days 2-5) No Action valacyclovir [Valtrex] 500 mg tablet 500 mg PO BID PRN (Reason: antiviral) 3 Days Qty: 30 1RF Rx Instructions: take with onset on of symptoms, take for three days, may repeat dosing per episode prn cholecalciferol (vitamin D3) 25 mcg (1,000 unit) tablet 25 mcg PO DAILY Referrals: Megan Gonzalez MD [Primary Care Provider] - 3 days Interventions: ED Discharge Assessment Last Done: 10/20/22 18:28 Discharge Date/Time: 10/20/22 18:29
[2022-10-20 16:48] LABS: Alanine Aminotransferase 20 U/L (0-31); Albumin Level 4.5 g/dL (3.5-5.0); Alkaline Phosphatase 63 U/L (39-117); Anion Gap 15 (12-20); Aspartate Amino Transferase 20 U/L (5-31); Bilirubin Direct 0.1 mg/dL (0.0-0.5); Bilirubin Total 0.4 mg/dL (0.0-1.0); Blood Urea Nitrogen 10 mg/dL (9-16); Carbon Dioxide 24 mmol/L (22-29); Chloride 104 mmol/L (96-108); Creatinine Clr Calc Pharmacy 98.4; Estimated Glomerular Filt Rate > 60; Glucose Random 92 mg/dL (60-115); Magnesium 2.3 mg/dL (1.6-2.6); Potassium 4.1 mmol/L (3.3-5.1); Sodium 139 mmol/L (135-145); Total Protein 8.3 g/dL (6.5-8.0)
[2022-10-20 16:51] LABS: Prothrombin Time 11.9 SEC (11.1-13.3)
[2022-10-20 17:44] LABS: Appearance Urine Clear; Color Urine Yellow; Glucose Urine UA Negative (Negative); Leukocyte Esterase Urine Negative (Negative); Nitrite Urine Negative (Negative); PH 6.5 (5.0-9.0); Specific Gravity - Urine <= 1.005 (1.005-1.025); UPreg QC Valid YES; Urine Blood Negative (Negative); Urine Ketones Negative (Negative); Urine Pregnancy NEGATIVE (NEGATIVE); Urine Protein Negative (Neg-Trace)
[2022-10-20 17:45] VITALS: BP 123/84; PULSE 73
[2022-10-20 17:46] VITALS: BP 128/81; PULSE 71
[2022-10-20 17:46] LABS: Glucose, Whole Blood 99 mg/dL (60-115)
[2022-10-20 17:47] VITALS: BP 137/88; PULSE 72
== END 2022-10-20 18:29 | disposition home or self-care (01) ==
PROVIDERS: Physician Assistant; Emergency Provider Student in an Organized Health Care Education/Training Program; PCP Internal Medicine Hematology & Oncology
DX: R42 Dizziness and giddiness (principal); H66.93 Otitis media, unspecified, bilateral; R51.9 Headache, unspecified; R53.83 Other fatigue; Z79.899 Other long term (current) drug therapy
CPT/HCPCS: 36415; 70450; 80048; 80076; 81003; 81025; 82947; 83735; 85025; 85610; 93005; 99284

== ENCOUNTER → 2022-10-20 15:47 | Outpatient (BNV) | payer OTHER, SELFPAY | PROVIDERS: Emergency Provider Student in an Organized Health Care Education/Training Program; PCP Internal Medicine Hematology & Oncology; Visit Provider Internal Medicine | DX: I45.6 Pre-excitation syndrome (principal) | CPT/HCPCS: 93010 ==

== ENCOUNTER 2022-11-01 13:02 | Outpatient (AMB) | payer OTHER, SELFPAY ==
--- NOTE | 2022-11-01 13:04 | MHC.OFFVIS ---
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 Scribed for MARY High by Renetta Abreu medical research tech, on 11/01/2022 at 1:25 pm EST. Sebd Teacher Required: No Information Interpreted: non-clinical & clinical Put In Beat Adjuster: Put In Beat Adjuster Present (Rita) Allergies Penicillins Allergy (Mild, Verified 09/07/22 10:23) ITCHING promethazine [From Phenergan] Allergy (Mild, Verified 09/07/22 10:23) ITCHING, rash vancomycin [Vancomycin] Allergy (Mild, Verified 09/07/22 10:23) HIVES penicillin V Allergy (Unknown, Verified 09/07/22 10:23) hives, swelling Promethazine HCl Allergy (Unknown, Uncoded 06/20/21 17:54) hives Propylene Glycol Allergy (Unknown, Uncoded 06/20/21 17:54) severe acne Povidone Iodine Swabstick Adverse Reaction (Unknown, Uncoded 06/20/21 17:54) rash Is last menstrual period known: Yes Last menstrual period: 10/20/22 Post menopausal: No Patient : No HPI HPI Comments History of Present Illness Details She is a premenopausal woman presenting for annual exam. Doing well with no shipping lead concerns. She admits to eating healthy and tries to stay active with exercise. Currently not sexually active. Regular monthly menses. Denies vaginal itching and irritation. STD screening offered; she declines. Denies family hx of breast and ovarian cancer. Last pap smear 10/22/20. Last mammogram 11/24/21. PFSH Medical History Abnormal Pap smear of cervix Hypertension Surgical History H/O LEEP History of cholecystectomy Family History Maternal Grandfather Colon cancer Maternal Grandmother Diabetes Mother Diabetes Social History Alcohol intake: never Gender identity: Female Female Reproductive History Menstrual Age of Menarche: 14 Duration of menses: 3-5 days Date of last menstrual period: 10/20/22 control method: none Total pregnancies: 3 Full term: 3 Number of Living Children: 3 Date of last pap smear: 10/22/20 (neg pap and hpv) History of abnormal pap smear: Yes (04/01 ascus +hpv, 11/30 asc-h, 12/30 colpo RENY 2, 01/30 Leep RENY 2,10/31 RENY 1) Date of Mammogram: 11/24/21 (Birad 2) Physical Exam Vital Signs: Last Vital Signs BP 100/66 11/01/22 13:05 BMI result Body Mass Index 25.8 Const General: cooperative, healthy appearing, no acute distress, well developed and alert Orientation/consciousness: patient oriented x3 HEENT Head: Yes normal to inspection Eyes General: appearance normal, both eyes and all related structures Neck Neck: Yes normal visual inspection Thyroid: Thyroid normal Chest Chest palpation & inspection: normal inspection of the chest Breast/axilla inspection: normal inspection of the breasts (no puckering, dimpling, peau de orange, retraction, discharge, masses) Breast/axilla palpation: normal palpation of the breasts Resp Effort & Inspection: normal respiratory effort GI Inspection: Yes normal to inspection Palpation (GI): Soft to palpation (to palpation) Rectal Exam - Female: deferred General: Yes bladder normal to inspection External Female Exam: normal external appearance and normal appearance of the urethra Speculum Exam - Vagina: normal appearance of the vagina, normal palpation and normal vaginal discharge Speculum Exam - Cervix: normal appearance of the cervix and normal palpation Bimanual exam- vagina & uterus: normal palpation and normal palpation Bimanual Exam- Adnexa, other: normal adnexae and no masses Skin General skin exam: no rashes or lesions noted Neuro General: patient oriented x3 Cognition (Neuro): normal cognition Extrem General: Yes normal to inspection Psych Attitude: cooperative Thought process: Normal thought process present Assessment & Plan Assessment & Plan (1) Encounter for annual routine gynecological examination: Code(s): Z01.419 - Encounter for gynecological examination (general) (routine) without abnormal findings Plan: Discussed: Current recommendations for pap smears per ASCCP guidelines Breast awareness and periodic self breast exams. Mammogram ordered. Maintaining a healthy lifestyle including a well balanced diet and routine exercise. Encouraged to use condoms for STD and prevention if become sexually active. All of her questions and concerns were addressed to the best of my ability. RTO in one year for AG. Orders: Orders MM tomosynthesis screening BI Today Z12.31 - Encounter for screening mammogram for malignant neoplasm of breast Coding Level of Care Code Est Pt Prev Care 40-64y(05782) Diagnoses Encounter for annual routine gynecological examination Z01.419
[2022-11-01 13:05] VITALS: BP 100/66; BMI 25.8
== END 2022-11-01 13:54 | disposition home or self-care (01) ==
LOC: HO.HWS 13:02
PROVIDERS: PCP Internal Medicine Hematology & Oncology; Visit Provider Advanced Practice Midwife
DX: Z01.419 Encounter for gynecological examination (general) (routine) without abnormal findings (principal)
CPT/HCPCS: 99396

== ENCOUNTER → 2022-11-01 13:02 | Outpatient (BNVA) | payer OTHER, SELFPAY | PROVIDERS: PCP Internal Medicine Hematology & Oncology; Visit Provider Advanced Practice Midwife ==

== ENCOUNTER 2022-11-25 11:00 | Outpatient (REF) | payer OTHER, SELFPAY | END 2022-11-25 11:01 | disposition home or self-care (01) | LOC: HO.MAMMO 11:00 | PROVIDERS: Absent Provider Advanced Practice Midwife; PCP Internal Medicine Hematology & Oncology; Visit Provider Internal Medicine Hematology & Oncology | DX: Z12.31 Encounter for screening mammogram for malignant neoplasm of breast (principal) | CPT/HCPCS: 77063; 77067 ==

== ENCOUNTER → 2022-11-25 11:45 | Outpatient (BNV) | payer OTHER, SELFPAY | PROVIDERS: Absent Provider Advanced Practice Midwife; PCP Internal Medicine Hematology & Oncology; Visit Provider Radiology Diagnostic Radiology | DX: Z12.31 Encounter for screening mammogram for malignant neoplasm of breast (principal) | CPT/HCPCS: 77063; 77067 ==

== ENCOUNTER 2023-11-09 13:14 | Outpatient (AMB) | payer OTHER, SELFPAY ==
--- NOTE | 2023-11-09 13:17 | A.OFFVIS_ITS ---
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 Doing well with concerns: Just completed antibiotics for an ear infection and has external itching and irritation. She tries to eat healthy and stays active with exercise. Regular monthly menses. Currently not is sexually active. Declines control currently. She denies vaginal itching and irritation. STI screening offered; she accepts. Declines bled work as it was done with her PCP. Denies family history of breast or ovarian cancer. FH colon cancer. Last pap smear 2020, negative. History of LEEP. Mammogram: 2022. [facility] Medical History Hypertension Abnormal Pap smear of cervix Surgical History H/O LEEP History of cholecystectomy Family History Maternal Grandfather Colon cancer Maternal Grandmother Diabetes Mother Diabetes Social History Alcohol intake: never Patient Tobacco Use Status: Never used Tobacco Current occupational status: employed Current occupation: [employer] Gender identity: Female Female Reproductive History Menstrual Age of Menarche: 14 Date of last menstrual period: 11/01/23 Total pregnancies: 3 Full term: 3 Number of Living Children: 3 Date of last pap smear: 10/22/20 (neg pap and hpv) History of abnormal pap smear: Yes (04/01 ascus +hpv 11/30 asc-h 12/30 colpo becky 2 01/30 leep becky 2 10/31 becky 1) Date of Mammogram: 11/25/22 (Birad 1) Review of Systems Const All systems reviewed & are unremarkable except as noted in HPI and below Reports as per HPI Eyes Reports no additional complaints ENT Reports no additional complaints Card Reports no additional complaints Resp Reports no additional complaints GI Reports as per HPI and Reports no additional complaints Reports as per HPI Musc Reports no additional complaints Skin/Breast Reports as per HPI Neuro Reports no additional complaints Psych Reports no additional complaints Endo Reports no additional complaints Angel/Lymph Reports no additional complaints Aller/Immun Reports no additional complaints Physical Exam Const General: cooperative, healthy appearing, no acute distress, well developed and alert Orientation/consciousness: patient oriented x3 HEENT Head: Yes normal to inspection Eyes General: appearance normal, both eyes and all related structures Neck Neck: Yes normal visual inspection Thyroid: Thyroid normal Chest Chest palpation & inspection: normal inspection of the chest and other (no puckering, dimpling, peau de orange, retraction, discharge, masses) Breast/axilla inspection: normal inspection of the breasts Breast/axilla palpation: normal palpation of the breasts Resp Effort & Inspection: normal respiratory effort GI Inspection: Yes normal to inspection Palpation (GI): Soft to palpation Rectal Exam - Female: deferred General: Yes bladder normal to palpation External Female Exam: normal external appearance, normal appearance of the urethra and erythema Speculum Exam - Vagina: normal appearance of the vagina, normal palpation and normal vaginal discharge Speculum Exam - Cervix: normal appearance of the cervix (Status post LEEP appearance bled slightly with Pap) and normal palpation Bimanual exam- vagina & uterus: normal bimanual exam, normal palpation, uterine size normal, bladder normal to palpation, normal palpation and non-tender Bimanual Exam- Adnexa, other: no masses Skin General skin exam: no rashes or lesions noted Rashes: no rashes Neuro General: patient oriented x3 Cognition (Neuro): normal cognition Extrem General: Yes normal to inspection Psych Attitude: cooperative Thought process: Normal thought process present Assessment & Plan Assessment & Plan (1) Encounter for well woman exam with routine gynecological exam: Code(s): Z01.419 - Encounter for gynecological examination (general) (routine) without abnormal findings Category: Medical (2) History of abnormal cervical Pap smear: Code(s): Z87.42 - Personal history of other diseases of the female genital tract (3) Vulvar irritation: Code(s): N90.89 - Other specified noninflammatory disorders of vulva and perineum Plan Discussed: Current recommendations for pap smears per ASCCP guidelines. Breast awareness and periodic breast exams. Maintain a healthy lifestyle including a well balanced diet and routine exercise. Use condoms for STI and prevention. Mammogram yearly. Rx for Monistat sent to pharmacy. Patient verbalizes understanding and agrees to the plan of care. She was given opportunity to ask questions and all questions were answered to the best of my ability. 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 This note is constructed using voice recognition software. While every effort has been made to ensure accuracy, filament cutter errors may have been included. Medications: New miconazole nitrate 2% (Monistat 7) 1 appful vaginal BEDTIME 7 days 45 grams 0RF Coding Level of Care Code Est Pt Prev Care 40-64y(44007) Diagnoses Encounter for well woman exam with routine gynecological exam Z01.419 History of abnormal cervical Pap smear Z87.42 Vulvar irritation N90.89
[2023-11-09 13:18] VITALS: BP 118/80; BMI 27.0
== END 2023-11-09 13:53 | disposition home or self-care (01) ==
PROVIDERS: PCP Internal Medicine Hematology & Oncology; Visit Provider Advanced Practice Midwife
DX: Z01.419 Encounter for gynecological examination (general) (routine) without abnormal findings (principal); Z87.42 Personal history of other diseases of the female genital tract; N90.89 Other specified noninflammatory disorders of vulva and perineum
CPT/HCPCS: 99396

== ENCOUNTER 2023-11-09 13:14 | Outpatient (REF) | payer OTHER, SELFPAY | END 2023-11-09 13:15 | disposition home or self-care (01) | LOC: HO.LAB 13:14 | PROVIDERS: PCP Internal Medicine Hematology & Oncology; Visit Provider Advanced Practice Midwife | DX: Z01.419 Encounter for gynecological examination (general) (routine) without abnormal findings (principal); N90.89 Other specified noninflammatory disorders of vulva and perineum; Z87.42 Personal history of other diseases of the female genital tract | CPT/HCPCS: 99396 ==

== ENCOUNTER 2023-11-09 13:44 | Outpatient (REF) | payer OTHER, SELFPAY ==
[2023-11-09 18:06] LABS: CT PCR NOT DETECTED (Not Detect.); NG PCR NOT DETECTED (Not Detect.)
[2023-11-09 18:14] LABS: Bacterial Vaginosis PCR NEGATIVE (Negative); Candida Group PCR NOT DETECTED (Not Detect); Candida glab krusei PCR NOT DETECTED (Not Detect); Trichomonas vaginalis PCR NOT DETECTED (Not Detect)
[2023-11-13 13:33] LABS: HPV mRNA E6/E7 Not Detected (Not Detected)
== END 2023-11-09 13:45 | disposition home or self-care (01) ==
LOC: HO.LNP 13:44
PROVIDERS: Visit Provider Advanced Practice Midwife
DX: Z01.419 Encounter for gynecological examination (general) (routine) without abnormal findings (principal); N89.8 Other specified noninflammatory disorders of vagina
CPT/HCPCS: 0352U; 87491; 87591; 87624; 88175

== ENCOUNTER → 2023-11-29 08:00 | Outpatient (BNV) | payer OTHER, SELFPAY | PROVIDERS: PCP Internal Medicine; Visit Provider Internal Medicine | DX: Z12.31 Encounter for screening mammogram for malignant neoplasm of breast (principal) | CPT/HCPCS: 77063; 77067 ==

== ENCOUNTER 2023-11-29 08:06 | Outpatient (REF) | payer OTHER, SELFPAY ==
--- NOTE | ~2023-11-29 | MM_ITS ---
EXAMINATION: MM SCREENING DIGITAL BREAST TOMOSYNTHESIS, BILATERAL CLINICAL INFORMATION: Screening. Asymptomatic. COMPARISON: Mammography: Comparison is made with available priors TECHNIQUE: Digital breast mammography with tomosynthesis is performed in both the craniocaudal and mediolateral oblique views along with computer-aided detection (CAD). FINDINGS: The breasts are heterogeneously dense, which may obscure small masses (ACR BI-RADS breast composition Category c). There are no significant masses, abnormal calcifications, or other abnormalities. MM/MM tomosynthesis screening BI IMPRESSION: No mammographic evidence of malignancy. ASSESSMENT: BI-RADS BI-RADS 1 - Negative RECOMMENDATION: Routine annual mammography screening. 1 year F/U This examination should not preclude the clinical evaluation of a suspicious palpable abnormality. This patient's information was entered into a reminder system with a target due date for their next mammogram. Electronically signed by: Judie Coe DO 12/12/2023 04:02 PM EDT
== END 2023-11-29 08:07 | disposition home or self-care (01) ==
LOC: HO.MAMMO 08:06
PROVIDERS: PCP Internal Medicine; Visit Provider Internal Medicine
DX: Z12.31 Encounter for screening mammogram for malignant neoplasm of breast (principal)
CPT/HCPCS: 77063; 77067

== ENCOUNTER 2024-09-12 15:34 | Outpatient (REF) | payer OTHER, SELFPAY | END 2024-09-12 15:35 | disposition home or self-care (01) | LOC: HO.LAB 15:34 | PROVIDERS: PCP Internal Medicine; Visit Provider Advanced Practice Midwife | DX: R93.89 Abnormal findings on diagnostic imaging of other specified body structures (principal); R32 Unspecified urinary incontinence; Z20.2 Contact with and (suspected) exposure to infections with a predominantly sexual mode of transmission | CPT/HCPCS: 99212 ==

== ENCOUNTER 2024-09-12 16:14 | Outpatient (REF) | payer OTHER, SELFPAY ==
[2024-09-12 18:25] LABS: Bacterial Vaginosis PCR NEGATIVE (Negative); Candida Group PCR NOT DETECTED (Not Detect); Candida glab krusei PCR NOT DETECTED (Not Detect); Trichomonas vaginalis PCR NOT DETECTED (Not Detect)
[2024-09-12 18:58] LABS: CT PCR NOT DETECTED (Not Detect.); NG PCR NOT DETECTED (Not Detect.)
== END 2024-09-12 16:15 | disposition home or self-care (01) ==
LOC: HO.LNP 16:14
PROVIDERS: Visit Provider Advanced Practice Midwife
DX: Z20.2 Contact with and (suspected) exposure to infections with a predominantly sexual mode of transmission (principal)
CPT/HCPCS: 81515; 87491; 87591

== ENCOUNTER 2024-11-13 13:56 | Outpatient (AMB) | payer OTHER, SELFPAY ==
--- NOTE | 2024-11-13 14:04 | MHC.OFFVIS ---
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 Regular monthly menses. Currently is sexually active, who is infertile. She denies vaginal itching or irritation. STI screening offered; she accepts. She tries to eat healthy and stays active with exercise. FH colon cancer. Last pap smear 2023, negative. Hx. of LEEP. Mammogram: 2023, negative. PFSH Medical History Incontinence Abnormal finding on CT scan Hypertension Abnormal Pap smear of cervix Surgical History H/O LEEP History of cholecystectomy Family History Maternal Grandfather Colon cancer Maternal Grandmother Diabetes Mother Diabetes Social History Alcohol intake: never Patient Tobacco Use Status: Never used Tobacco Current occupational status: employed Current occupation: [employer] Gender identity: Female Female Reproductive History Menstrual Age of Menarche: 14 Date of last menstrual period: 10/17/24 control method: none Total pregnancies: 3 Full term: 3 Number of Living Children: 3 Date of last pap smear: 11/09/23 (neg pap and hpv) History of abnormal pap smear: Yes (see intake note) Date of Mammogram: 11/29/23 (Birad 1) Review of Systems Const All systems reviewed & are unremarkable except as noted in HPI and below Reports as per HPI Eyes Reports no additional complaints ENT Reports no additional complaints Card Reports no additional complaints Resp Reports no additional complaints GI Reports as per HPI and Reports no additional complaints Reports as per HPI Musc Reports no additional complaints Skin/Breast Reports as per HPI Neuro Reports no additional complaints Psych Reports no additional complaints Endo Reports no additional complaints Angel/Lymph Reports no additional complaints Aller/Immun Reports no additional complaints Physical Exam Vital Signs: Last Vital Signs BP 112/70 11/13/24 14:05 BMI result Body Mass Index 24.7 Const General: cooperative, healthy appearing, no acute distress, well developed and alert Orientation/consciousness: patient oriented x3 HEENT Head: Yes normal to inspection Eyes General: appearance normal, both eyes and all related structures Neck Neck: Yes normal visual inspection Thyroid: Thyroid normal Chest Chest palpation & inspection: normal inspection of the chest and other (no puckering, dimpling, peau de orange, retraction, discharge, masses) Breast/axilla inspection: normal inspection of the breasts Breast/axilla palpation: normal palpation of the breasts Resp Effort & Inspection: normal respiratory effort GI Inspection: Yes normal to inspection Palpation (GI): Soft to palpation Rectal Exam - Female: deferred General: Yes bladder normal to palpation External Female Exam: normal external appearance and normal appearance of the urethra Speculum Exam - Vagina: normal appearance of the vagina, normal palpation and normal vaginal discharge Speculum Exam - Cervix: normal appearance of the cervix and normal palpation Bimanual exam- vagina & uterus: normal bimanual exam, normal palpation, uterine size normal, bladder normal to palpation, normal palpation and non-tender Bimanual Exam- Adnexa, other: no masses Skin General skin exam: no rashes or lesions noted Rashes: no rashes Neuro General: patient oriented x3 Cognition (Neuro): normal cognition Extrem General: Yes normal to inspection Psych Attitude: cooperative Thought process: Normal thought process present Assessment & Plan Assessment & Plan (1) Encounter for annual routine gynecological examination: Code(s): Z01.419 - Encounter for gynecological examination (general) (routine) without abnormal findings Category: Medical Plan Discussed: Current recommendations for pap smears per ASCCP guidelines. Breast awareness and periodic breast exams. Mammogram yearly. Maintain a healthy lifestyle including a well balanced diet and routine exercise. Use condoms for STI and prevention. Colonoscopy >45, or at risk sooner. Patient verbalizes understanding and agrees to the plan of care. She was given opportunity to ask questions and all questions were answered to the best of my ability. RTO in one year for annual services clerk examination. This note is constructed using voice recognition software. While every effort has been made to ensure accuracy, tower truck driver errors may have been included. Coding Level of Care Code Est Pt Prev Care 40-64y(70125) Diagnoses Encounter for annual routine gynecological examination Z01.419
[2024-11-13 14:05] VITALS: BP 112/70; BMI 24.7
--- OUTSIDE RECORDS SUMMARY | 2024-11-13 14:49 | XMS_ITS | Clinical Summary ---
Author Organization [place] [address] [facility] Address [address] [facility] [place] [address] Phone Care Team Providers Care Passport Application Examiner Name Role Phone Jose Gonzalez MD Primary Care Provider [phone] Allergies Active Allergy Reactions Criticality Noted Date Comments Lorazepam Other 05/08/2015 Severe fatigue Penicillins 05/08/2015 itching Promethazine 05/08/2015 Itching Shrimp Swelling 09/14/2022 Vancomycin 05/08/2015 Hives Medications multivitamin (MULTIPLE VITAMINS ORAL) Take by mouth. Active cholecalciferol (VITAMIN D-3) 25 mcg (1,000 unit) tablet Take 1 tablet (1,000 Units total) by mouth 1 (one) time each day. 2 Active fluticasone propionate (FLONASE) 50 mcg/actuation nasal spray Administer 2 sprays into each nostril 1 (one) time each day. Shake gently. Before first use, prime pump. After use, clean tip and replace cap. 16 g 5 07/31/19 26 Active cetirizine (ZyrTEC) 10 mg tablet Take 1 tablet (10 mg total) by mouth 1 (one) time each day. 30 each 5 Active hydrocortisone (ANUSOL-HC) 2.5 % rectal cream Insert into the rectum 4 (four) times a day if needed for hemorrhoids (rectal discomfort). 30 g 5 5 09/11/19 26 Active Active Problems Problem Noted Date Diagnosed Date Hypertriglyceridemia 07/23/2021 Hypertension 08/21/2019 Tension headache 09/12/2017 OCD (obsessive compulsive disorder) 02/02/2017 Overview (03/18/2024): Working with therapist Allergic rhinitis 10/22/2015 Anxiety 05/08/2015 Overview (03/18/2024): Seeing counselor weekly Vistaril prn - usually nighttime GERD (gastroesophageal reflux disease) 6 Overview (03/18/2024): Treated for h pylori 2014 History of seizure as 05/08/2015 Overview (03/18/2024): ? Heart issues, resolved in childhood Neuro consult 06/2015 no evidence of recurrence Encounters Date Type Department Care Team Description 11/05/2024 3:00 PM EDT Office Visit Internal Medicine - [address] [phone] Jose Gonzalez MD Encounter for annual physical exam (Primary Dx); Varicose veins of left lower extremity with pain; Mixed hyperlipidemia; Numbness in left leg 09/19/2024 1:40 PM EDT Consult Gastroenterology - [place] [address] [place] [address] Iesha Perrin NP Epigastric abdominal pain (Primary Dx); Internal and external hemorrhoids without complication 09/17/2024 1:15 PM EDT Office Visit Internal Medicine - [address] [phone] Jose Gonzalez MD Left lower quadrant abdominal pain (Primary Dx) 09/17/2024 Telephone Pediatrics - [address] [phone] Jose Gonzalez MD 09/10/2024 2:05 PM EDT - 09/10/2024 11:59 PM EDT [facility] [address] [place], [place] [address] [address] Acute left-sided low back pain without sciatica Discharge Disposition: Home or Self Care 09/10/2024 2:05 PM EDT - 09/10/2024 11:59 PM EDT [facility] [place] [phone] Mid back pain on left side Discharge Disposition: Home or Self Care 09/10/2024 1:30 PM EDT Office Visit Internal Medicine - [facility] [place] [phone] Jose Gonzalez MD Acute left-sided low back pain without sciatica (Primary Dx); Mid back pain on left side; Varicose veins of left lower extremity with pain 09/03/2024 [address]s [address] [place] [phone] Jose Gonzalez MD from Last 3 Months Immunizations Name Administration Dates Next Due Hepatitis B (Ylofvfq-P-Ibiuv , Recombivax HB-Adult) 19yo and older 08/09/2018,07/02/2018 Influenza Quadravalent, MDCK , 0.5ml, preservative free (Flucelvax) 6mo and older 11/24/2017 Influenza Quadravalent, MDCK , 0.5ml, with preservative (Flucelvax) 6mo and older 02/02/2017 Influenza, Unspecified 01/09/2020 Moderna SARS-CoV-2 COVID-19, mRNA, LNP-S, preservative free 03/26/2021 Tdap Tetanus diptheria acell ular pertussis (Boostrix; Adacel) 7yo and older 08/09/2018 Surgical History Surgery Date Site/Laterality Comments CHOLECYSTECTOMY PROCEDURE: CT CHOLECYSTECTOMY; COMMENT: sarah CERVICAL BIOPSY W/ LOOP ELECTRODE EXCISION 2013 PROCEDURE: CT CONIZATION CERVIX W/WO D&C RPR ELTRD EXC; COMMENT: [facility] midwifery OTHER SURGICAL HISTORY 07/17/2016 PROCEDURE: LAPAROSCOPY, APPENDECTOMY Medical History Medical History Date Comments History of seizure as 05/08/2015 DX :History of seizure as GERD (gastroesophageal reflu x disease) 05/08/2015 DX:GERD (gastroesophageal re flux disease) Anxiety 05/08/2015 DX:Anxiety Family History Medical History Relation Name Comments Thyroid disease Aunt hypo Asthma Father Colon cancer Maternal Grandfather Diabetes Maternal Grandmother Depression Mother diabetes Asthma Son Relation Name Status Comments Aunt Alive Father Alive Maternal Grandfather Maternal Grandmother Mother Alive Son Alive Social History Tobacco Use Types Packs/Day Years Used Date Smoking Tobacco: Never Smokeless Tobacco: Never Tobacco Cessation:Counseling Given: Not Answered Alcohol Use Standard Drinks/Week Comments No 0 (1 standard drink = 0.6 oz pur e alcohol) Housing Instability Answer Date Recorde d Are you worried that in the next 2 months you may not have stable housing? No 11/05/2024 Food Access & Nutrition Answer Date Rec orded Do you have access to a vari ety of food including fruits and vegetables? Yes 11/05/2024 Access to Healthcare Answer Date Record ed Within the last 3 months, ho w many times did you visit the emergency department for your medical care? 0 11/05/2024 Health Literacy Answer Date Recorded How often do you need to hav e someone help you when you read instructions, pamphlets, or other written material from your doctor or pharmacy? Sometimes 11/05/2024 Caregiver: How often do you need to have someone help you when you read instructions, pamphlets, or other written material from your doctor or pharmacy? Not on file 11/05/2024 Financial Risk Answer Date Recorded How hard is it for you to pa y for the very basics like food, housing, medical care, and air conditioning / heating? Very hard 11/05/2024 Transportation Answer Date Recorded Has the lack of transportati on kept you from meetings, work, or from getting things needed for daily living? No Has the lack of transportati on kept you from medical appointments or from getting medications? No 11/05/2024 Social Isolation Answer Date Recorded How often do you feel lonely or isolated from those around you? Sometimes 11/05/2024 Food Risk Answer Date Recorded Within the past 12 months we worried whether our food would run out before we got money to buy more. Sometimes true 025 Within the past 12 months th e food we bought just didn't last and we didn't have money to get more. Never true 11/05/2024 Dependent Care Answer Date Recorded Do you need help finding or paying for care for your loved ones. For example, child support case officer or elderly care for an older adult? No 11/05/2024 Education Answer Date Recorded Do you think completing more education or training, like finishing a GED, going to college, or learning a trade, would be helpful for you? Yes 11/05/2024 Employment and Income Answer Date Recor ded During the last four weeks, have you been actively looking for work? No 11/05/2024 Living Situation Answer Date Recorded What is your living situation? 0 11/05/2024 Comments No Sex and Gender Information Value Date Recorded Sex Assigned at Not on file Legal Sex Female 9:02 AM EST Gender Identity Not on file Sexual Orientation Not on file Obstetrics History Para Term AB IAB SAB Ectopic Multiple Livin g Live Births 3 Last Filed Vital Signs Vital Sign Reading Time Taken Comments Blood Pressure 127/80 11/05/2024 3:08 PM EDT Pulse 85 11/05/2024 3:08 PM EDT Temperature - - Respiratory Rate - - Oxygen Saturation 97% 09/19/2024 1:53 PM EDT Inhaled Oxygen Concentration - - Weight 69.9 kg (154 lb 3.2 oz) 11/05/2024 3:08 P M EDT Height 165.1 cm (5' 5 ) 09/19/2024 1:53 PM EDT Body Mass Index 25.66 09/19/2024 1:53 PM EDT Plan of Treatment Upcoming Encounters Date Type Department Care Team (Late st Contact Info) Description 01/16/2025 3:00 PM EDT Ancillary Procedure [facility] [address] [place] [phone] 11/07/2025 3:00 PM EDT Office Visit Internal Medicine - [address] [place] [address] Jose Gonzalez MD [address] [place] [address] Health Maintenance Due Date Last Done Comments Hepatitis B Vaccines (3 of 3 - 19+ 3-dose series) 01/01/2019 08/09/2018, 07/02/2018 COVID-19 Vaccine (4 - 2023- season) 2023 03/26/2021, 07/10/2020, 06/12/2020 Depression Screening 03/20/2024 Cervical Cancer Screening: Pap Smear 11/10/2024 11/10/2021 Influenza Vaccine (#1) 2024 , 01/04/2023, 01/04/2022, Additional history exists Hypertension/CHF/CAD Annual BMP Blood Test 05/07/2025 05/07/2024, 09/15/2023 Social Influencers of Health Screening 11/05/2025 11/05/2024 Breast Cancer Screening 05/14/2026 05/14/2024 Cholesterol Screening (Lipid Panel) 05/07/2029 05/07/2024, 09/15/2023 DTaP,Tdap,and Td Vaccines (4 - Td or Tdap) 05/11/2033 05/11/2023, 08/09/2018, 04/24/2012 HIV Screening Completed 09/15/2023 Hepatitis C Screening Completed 09/15/2023 HIB Vaccines Aged Out No longer eligi ble based on patient's age to complete this topic HPV Vaccines Aged Out No longer eligi ble based on patient's age to complete this topic Hepatitis A Vaccines Aged Out No long er eligible based on patient's age to complete this topic IPV Vaccines Aged Out No longer eligi ble based on patient's age to complete this topic MMR Vaccines Aged Out No longer eligi ble based on patient's age to complete this topic Meningococcal ACWY Vaccine Aged Out N o longer eligible based on patient's age to complete this topic Meningococcal B Vaccine Aged Out No l onger eligible based on patient's age to complete this topic Pneumococcal Vaccine: Pediatrics (0 to 5 Years) and At-Risk Patients (6 to 49 Years) Aged Out No longer eligible based on patient's age to complete this topic RSV Immunization Patients Under 20 months Aged Out No longer eligible based on patient's age to complete this topic Varicella Vaccines Aged Out No longer eligible based on patient's age to complete this topic Procedures Procedure Name Priority Date/Time Associated Diagnosis Comments XR THORACIC SPINE 2 VIEWS Routine 09/10/2024 2:18 PM EDT Mid back pain on left side XR LUMBAR SPINE 4+ VIEWS Routine 09/10/2024 2:18 PM EDT Acute left-sided low back pain without sciatica MG MAMMO DIGITAL DIAGNOSTIC W MAXIMILIANO RIGHT Routine 05/14/2024 9:08 AM EST Mass of upper inner quadrant of right breast COMPREHENSIVE METABOLIC PANEL Routine 05/07/2024 4:36 PM EST Mass of upper inner quadrant of right breast LIPID PANEL WITH REFLEX TO DIRECT LDL Routine 05/07/2024 4:36 PM EST Hyperlipidemia, unspecified hyperlipidemia type HM HEPATITIS C SCREENING Routine 09/15/2023 HIV SCREENING Routine 09/15/2023 HM PAP SMEAR Routine 11/10/2021 from Last 3 Months or Most Recently Relevant to Health Maintenance Results * XR Thoracic Spine 2 Views (09/10/2024 2:18 PM EDT) Anatomical Region Laterality Modality Spine, T-spine Radiographic Arcelia ging 09/10/2024 2:26 PM EDT Impressions 09/10/2024 2:29 PM EDT Thoracic spine: No obvious compression fracture deformity. Lumbar spine: No compression fracture. Spondylolisthesis. -------- FINAL REPORT -------- Dictated By: Clinton Jimenez Dictated Date: 09/10/2024 14:26 ET Assigned Physician: Clinton Jimenez Reviewed and Electronically Signed By: Clinton Jimenez Signed Date: 09/10/2024 14:29 ET Workstation ID: [id number] Transcribed By: Self Edit Transcribed Date: 09/10/2024 14:26 ET Narrative 09/10/2024 2:29 PM EDT XR THORACIC SPINE 2 VIEWS, XR LUMBAR SPINE 4+ VIEWS Reason: BACK PAIN, ACUTE MID-THORACIC Comparison: None FINDINGS: Thoracic spine: Mild dextrocurvature of the thoracic spine. No subluxation. No obvious compression fracture deformity. Small marginal osteophytes at multiple levels. Lumbar spine: Mild levocurvature of the lumbar spine. Grade 1 anterolisthesis of L5 on S1 with suggestion of pars defect. No compression fracture. Disc space narrowing and marginal osteophytes at L5-S1. Sacroiliac joints are intact. Procedure Note Clinton Jimenez MD - 09/10/2024 XR THORACIC SPINE 2 VIEWS, XR LUMBAR SPINE 4+ VIEWS Reason: BACK PAIN, ACUTE MID-THORACIC Comparison: None FINDINGS: Thoracic spine: Mild dextrocurvature of the thoracic spine. Nosubluxation. No obvious compression fracture deformity. Small marginalosteophytes at multiple levels. Lumbar spine: Mild levocurvature of the lumbar spine. Grade 1anterolisthesis of L5 on S1 with suggestion of pars defect. No compressionfracture. Disc space narrowing and marginal osteophytes at L5-S1.Sacroiliac joints are intact. IMPRESSION: Thoracic spine: No obvious compression fracture deformity. Lumbar spine: No compression fracture. Spondylolisthesis. -------- FINAL REPORT -------- Dictated By: Clinton Jimenez Dictated Date: 09/10/2024 14:26 ET Assigned Physician: Clinton Jimenez Reviewed and Electronically Signed By: Clinton Jimenez Signed Date: 09/10/2024 14:29 ET Workstation ID: [id number] Transcribed By: Self Edit Transcribed Date: 09/10/2024 14:26 ET us Jose Gonzalez MD IMG XR PROCEDURES Final Result * XR Lumbar Spine 4+ Views (09/10/2024 2:18 PM EDT) Anatomical Region Laterality Modality Spine, L-spine Radiographic Arcelia ging 09/10/2024 2:26 PM EDT Impressions 09/10/2024 2:29 PM EDT Thoracic spine: No obvious compression fracture deformity. Lumbar spine: No compression fracture. Spondylolisthesis. -------- FINAL REPORT -------- Dictated By: Clinton Jimenez Dictated Date: 09/10/2024 14:26 ET Assigned Physician: Clinton Jimenez Reviewed and Electronically Signed By: Clinton Jimenez Signed Date: 09/10/2024 14:29 ET Workstation ID: [id number] Transcribed By: Self Edit Transcribed Date: 09/10/2024 14:26 ET Narrative 09/10/2024 2:29 PM EDT XR THORACIC SPINE 2 VIEWS, XR LUMBAR SPINE 4+ VIEWS Reason: BACK PAIN, ACUTE MID-THORACIC Comparison: None FINDINGS: Thoracic spine: Mild dextrocurvature of the thoracic spine. No subluxation. No obvious compression fracture deformity. Small marginal osteophytes at multiple levels. Lumbar spine: Mild levocurvature of the lumbar spine. Grade 1 anterolisthesis of L5 on S1 with suggestion of pars defect. No compression fracture. Disc space narrowing and marginal osteophytes at L5-S1. Sacroiliac joints are intact. Procedure Note Clinton Jimenez MD - 09/10/2024 XR THORACIC SPINE 2 VIEWS, XR LUMBAR SPINE 4+ VIEWS Reason: BACK PAIN, ACUTE MID-THORACIC Comparison: None FINDINGS: Thoracic spine: Mild dextrocurvature of the thoracic spine. Nosubluxation. No obvious compression fracture deformity. Small marginalosteophytes at multiple levels. Lumbar spine: Mild levocurvature of the lumbar spine. Grade 1anterolisthesis of L5 on S1 with suggestion of pars defect. No compressionfracture. Disc space narrowing and marginal osteophytes at L5-S1.Sacroiliac joints are intact. IMPRESSION: Thoracic spine: No obvious compression fracture deformity. Lumbar spine: No compression fracture. Spondylolisthesis. -------- FINAL REPORT -------- Dictated By: Clinton Jimenez Dictated Date: 09/10/2024 14:26 ET Assigned Physician: Clinton Jimenez Reviewed and Electronically Signed By: Clinton Jimenez Signed Date: 09/10/2024 14:29 ET Workstation ID: [id number] Transcribed By: Self Edit Transcribed Date: 09/10/2024 14:26 ET us Jose Gonzalez MD IMG XR PROCEDURES Final Result * MG Mammo Digital Diagnostic w Maximiliano Right (05/14/2024 9:08 AM EST) Anatomical Region Laterality Modality Breast Right Mammography 05/14/2024 9:00 AM EST Impressions 05/14/2024 9:07 AM EST No mammographic or sonographic evidence of malignancy The patient should be managed on the basis of the clinical breast exam. A negative mammogram in the presence of a clinically suspicious palpable abnormality does not preclude the possibility of malignancy or alter the indications for biopsy. ASSESSMENT: BI-RADS 1: NEGATIVE RECOMMENDATION(S): 1: Clinical correlation recommended RIGHT Continue screening -------- FINAL REPORT -------- Dictated By: Antonio Vaughn Dictated Date: 05/14/2024 09:00 ET Assigned Physician: Antonio Vaughn Reviewed and Electronically Signed By: Antonio Vaughn Signed Date: 05/14/2024 09:07 ET Workstation ID: [id number] Transcribed By: Self Edit Transcribed Date: 05/14/2024 09:00 ET Narrative 05/14/2024 9:07 AM EST EXAM: DIAGNOSTIC MAMMOGRAPHY, UNILATERAL RIGHT ULTRASOUND: DIAGNOSTIC ULTRASOUND, UNILATERAL RIGHT HISTORY: Abnormal clinical breast exam. Palpable abnormality lower inner right breast by patient's self exam. COMPARISON: Right mammography 11/29/2023, 11/25/2022, 11/24/2021 TECHNIQUE: Synthesized views of the right breast in the CC and MLO projections. Tomosynthesis of the right breast in the CC and MLO projections. ADDITIONAL IMAGING: None High-frequency linear transducer ultrasound of the right breast targeted to the area of clinical concern. Computer-aided detection was employed with the [email or web address] 3-D. TISSUE DENSITY: The breasts are heterogeneously dense, which may obscure small masses. (BI-RADS category C) FINDINGS: MAMMOGRAPHY: RIGHT BREAST: No suspicious mass. No suspicious calcification. No distortion. A marker is placed in the area of clinical concern. There is no suspicious abnormality. There has been no suspicious interval change. ULTRASOUND: RIGHT BREAST 3 o'clock region, 4 cm from right nipple Area of palpable concern indicated by the patient. The patient was examined upright and recumbent. There is no suspicious mass. There is no suspicious area of altered echotexture. Procedure Note Antonio Vaughn MD - 05/14/2024 EXAM: DIAGNOSTIC MAMMOGRAPHY, UNILATERAL RIGHT ULTRASOUND: DIAGNOSTIC ULTRASOUND, UNILATERAL RIGHT HISTORY: Abnormal clinical breast exam. Palpable abnormality lower innerright breast by patient's self exam. COMPARISON: Right mammography 11/29/2023, 11/25/2022, 11/24/2021 TECHNIQUE: Synthesized views of the right breast in the CC and MLOprojections. Tomosynthesis of the right breast in the CC and MLOprojections. ADDITIONAL IMAGING: None High-frequency linear transducer ultrasound of the right breast targetedto the area of clinical concern. Computer-aided detection was employed with the [email or web address] 3-D. TISSUE DENSITY: The breasts are heterogeneously dense, which may obscuresmall masses. (BI-RADS category C) FINDINGS: MAMMOGRAPHY: RIGHT BREAST: No suspicious mass. No suspicious calcification. No distortion. A marker is placed in the area of clinical concern. There is nosuspicious abnormality. There has been no suspicious interval change. ULTRASOUND: RIGHT BREAST 3 o'clock region, 4 cm from right nipple Area of palpable concern indicated by the patient. The patient was examined upright and recumbent. There is no suspicious mass. There is no suspicious area of alteredechotexture. IMPRESSION: No mammographic or sonographic evidence of malignancy The patient should be managed on the basis of the clinical breast exam. A negative mammogram in the presence of a clinically suspicious palpableabnormality does not preclude the possibility of malignancy or alter theindications for biopsy. ASSESSMENT: BI-RADS 1: NEGATIVE RECOMMENDATION(S): 1: Clinical correlation recommended RIGHT Continue screening -------- FINAL REPORT -------- Dictated By: Antonio Vaughn Dictated Date: 05/14/2024 09:00 ET Assigned Physician: Antonio Vaughn Reviewed and Electronically Signed By: Antonio Vaughn Signed Date: 05/14/2024 09:07 ET Workstation ID: [id number] Transcribed By: Self Edit Transcribed Date: 05/14/2024 09:00 ET us Jose Gonzalez MD IMG BI PROCEDURES Final Result * (ABNORMAL) Lipid panel with reflex to direct LDL (05/07/2024 4:36 PM EST) Cholesterol 199 0 - 200 mg/dL LAB CHEMISTRY METHOD 05/07/2024 7:42 PM EST [facility] Triglycerides 92 0 - 150 mg/dL LAB CHEMISTRY METHOD 05/07/2024 7:42 PM EST [facility] HDL 56 >=40 mg/dL LAB CHEMISTRY METHOD 05/07/2024 7:42 PM EST [facility] LDL Calculated 125(H) 0 - 100 mg/dL LAB CHEMISTRY METHOD 05/07/2024 7:42 PM EST [facility] VLDL Cholesterol Morteza 18.4 mg/dL LAB CHEMISTRY METHOD 05/07/2024 7:42 PM EST [facility] Non HDL Chol. (LDL+VLDL) 143 <145 mg/dL LAB CHEMISTRY METHOD 05/07/2024 7:42 PM EST [facility] Chol/HDL Ratio 3.6 0.0 - 4.4 LAB CHEMISTRY METHOD 05/07/2024 7:42 PM EST [facility] Blood Venous blood specimen / Unknown Venipuncture / Unknown 05/07/2024 4:36 PM EST 05/07/2024 4:36 PM EST us Jose Gonzalez MD LAB BLOOD ORDERABLES Final Resu lt [facility] [address] [place] [address], [place] [phone] * (ABNORMAL) Comprehensive metabolic panel (05/07/2024 4:36 PM EST) Sodium 135 133 - 145 mmol/L LAB CHEMISTRY METHOD 05/07/2024 7:42 PM EST [facility] Potassium 4.4 3.5 - 5.5 mmol/L LAB CHEMISTRY METHOD 05/07/2024 7:42 PM [facility] Chloride 101 96 - 110 mmol/L LAB CHEMISTRY METHOD 05/07/2024 7:42 PM [facility] CO2 30 21 - 32 mmol/L LAB CHEMISTRY METHOD 05/07/2024 7:42 PM [facility] Anion Gap 4 3 - 11 LAB CHEMISTRY METHOD 05/07/2024 7:42 PM [facility] Glucose 75 70 - 100 mg/dL LAB CHEMISTRY METHOD 05/07/2024 7:42 PM [facility] BUN 7 5 - 25 mg/dL LAB CHEMISTRY METHOD 05/07/2024 7:42 PM [facility] Creatinine 0.73 0.50 - 1.10 mg/dL LAB CHEMISTRY METHOD 05/07/2024 7:42 PM [facility] eGFR 106 >=60 mL/min/1. 73m2 LAB CHEMISTRY METHOD 05/07/2024 7:42 PM [facility] Comment:Calculation based on the Chronic Kidney Disease Epidemiology Collaboration (CKD-EPI) equation refit without adjustment for race. BUN/Creatinine Ratio 9.6 LAB CHEMISTRY METHOD 05/07/2024 7:42 PM [facility] Calcium 9.7 8.5 - 10.5 mg/dL LAB CHEMISTRY METHOD 05/07/2024 7:42 PM [facility] AST (SGOT) 15 10 - 42 unit/L LAB CHEMISTRY METHOD 05/07/2024 7:42 PM [facility] ALT (SGPT) 24 10 - 60 unit/L LAB CHEMISTRY METHOD 05/07/2024 7:42 PM [facility] Alkaline Phosphatase 57 42 - 121 unit/L LAB CHEMISTRY METHOD 05/07/2024 7:42 PM [facility] Total Protein 8.1(H) 6.0 - 8.0 g/dL LAB CHEMISTRY METHOD 05/07/2024 7:42 PM EST [facility] Albumin 4.4 3.2 - 5.0 g/dL LAB CHEMISTRY METHOD 05/07/2024 7:42 PM EST [facility] Total Bilirubin 0.5 0.0 - 1.4 mg/dL LAB CHEMISTRY METHOD 05/07/2024 7:42 PM EST [facility] Blood Venous blood specimen / Unknown Venipuncture / Unknown 05/07/2024 4:36 PM EST 05/07/2024 4:36 PM EST Jose Gonzalez MD LAB BLOOD ORDERABLES Final Resu lt [facility] [address] [place] [address], * HIV Screening (09/15/2023) HIV Screening Abstracted Historical Provider HEALTH MAINTENANCE Final Result * Hepatitis C Screening (09/15/2023) Pathologist [facility] Hepatitis C Screening Abstracted Historical Provider HEALTH MAINTENANCE Final Result * Pap Smear (11/10/2021) Pathologist [facility] Pap smear No interpretation , abstracted Historical Provider HEALTH MAINTENANCE Final Result from Last 3 Months or Most Recently Relevant to Health Maintenance Insurance [facility] [employer] Care Teams Passport Application Examiner Relationship Specialty Start Date End Date Jose Gonzalez MD [address] [facility] [place] [address] PCP - General Internal Medicine 03/15/24
--- OUTSIDE RECORDS SUMMARY | 2024-11-13 14:49 | XMS_ITS ---
Author Name [facility] Organization Unknown Care Team Organization Name Specialty Phone Email Start Date End Da te [facility] Jose Gonzalez Primary Care 05/25/20222023 [facility] Gumaro Julio Primary Care 01/25/20222023
== END 2024-11-13 14:37 | disposition home or self-care (01) ==
LOC: HO.HWS 13:56
PROVIDERS: PCP Internal Medicine; Visit Provider Advanced Practice Midwife
DX: Z01.419 Encounter for gynecological examination (general) (routine) without abnormal findings (principal)
CPT/HCPCS: 99396; 99459

== ENCOUNTER → 2024-11-13 13:56 | Outpatient (BNVA) | payer OTHER, SELFPAY | PROVIDERS: PCP Internal Medicine; Visit Provider Advanced Practice Midwife | DX: Z01.419 Encounter for gynecological examination (general) (routine) without abnormal findings (principal) | CPT/HCPCS: 99396 ==

== ENCOUNTER 2024-11-26 14:15 | Outpatient (AMB) | payer OTHER, SELFPAY ==
--- NOTE | 2024-11-26 14:16 | A.OFFVIS_ITS ---
Intake Visit Reasons: urinary incontinence Intake Note: New Patient is present for urinary incontinence Urology Rx: none PVR:65 ML Blood Thinners:none Imaging completed: none Public Address System Mechanic Required: No Accompanied by: Self / Same As Patient Allergies vancomycin (Vancomycin) Allergy (Mild, Verified 11/26/24 14:17) HIVES penicillin V Allergy (Unknown, Verified 11/26/24 14:17) hives, swelling Promethazine HCl Allergy (Unknown, Uncoded 06/20/21 17:54) hives Propylene Glycol Allergy (Unknown, Uncoded 06/20/21 17:54) severe acne Povidone Iodine Swabstick Adverse Reaction (Unknown, Uncoded 06/20/21 17:54) rash PFSH Medical History Incontinence Abnormal finding on CT scan Hypertension Abnormal Pap smear of cervix Surgical History H/O LEEP History of cholecystectomy Family History Maternal Grandfather Colon cancer Maternal Grandmother Diabetes Mother Diabetes Social History Alcohol intake: never Patient Tobacco Use Status: Never used Tobacco Current occupational status: employed Current occupation: [employer] Gender identity: Female Female Reproductive History Menstrual Age of Menarche: 14 Office Procedures Post Void Residual Post Residual Void Post Void Residual (PVR): 64 [id number]-[id number] Void Residual by ultrasound Results AMB Urinalysis, Automated UA Leukoctes 0 Keri/uL Last Edit by OCTAVIO Villarreal on 11/26/24 14:59 UA Nitrite Negative Last Edit by OCTAVIO Villarreal on 11/26/24 14:59 UA Urobilinogen 0.2 mg/dL Last Edit by OCTAVIO Villarreal on 11/26/24 14:5 9 UA Protein 0 mg/dL Last Edit by OCTAVIO Villarreal on 11/26/24 14:59 UA pH 7.0 Last Edit by OCTAVIO Villarreal on 11/26/24 14:59 UA Blood 0 Akil/uL Last Edit by OCTAVIO Villarreal on 11/26/24 14:59 UA Specific [place] 1.010 Last Edit by OCTAVIO Villarreal on 11/26/24 14: 59 UA Ketone Negative Last Edit by OCTAVIO Villarreal on 11/26/24 14:59 UA Bilirubin 0 mg/dL Last Edit by OCTAVIO Villarreal on 11/26/24 14:59 UA Glucose 0 mg/dL Last Edit by OCTAVIO Villarreal on 11/26/24 14:59 Assessment & Plan Assessment & Plan Orders: Orders AMB Post Void Residual by ultrasound Today R93.89 - Abnormal findings on diagnostic imaging of other specified body structures AMB Urinalysis Automated Today Z13.9 - Encounter for screening, unspecified Coding CPT Codes Post Residual Void - PVR CPT Code: 64261-Ccwe Void Residual by ultrasound ([id number])
--- OUTSIDE RECORDS SUMMARY | 2024-11-26 16:49 | XMS_ITS | Clinical Summary ---
Author Organization [place] [address] [facility] Address [address] [facility] [place] [address] Phone Care Team Providers Care Seam[employer] Advanced Operator Maintainer Name Role Phone Jose Gonzalez MD Primary Care Provider [phone] Allergies Active Allergy Reactions Criticality Noted Date [...] PM EDT Office Visit Internal Medicine - [address] [phone] Jose Gonzalez MD Encounter for annual physical exam (Primary Dx); Varicose veins of left lower extremity with pain; Mixed hyperlipidemia; Numbness in left leg 09/19/2024 1:40 PM EDT Consult Gastroenterology - [address] [place] [address] Iesha Perrin NP Epigastric abdominal pain (Primary Dx); Internal and external hemorrhoids without complication 09/17/2024 1:15 PM EDT Office Visit Internal Medicine - [address] [phone] Jose Gonzalez MD Left lower quadrant abdominal pain (Primary Dx) 09/17/2024 Telephone Pediatrics - [address] [phone] Jose Gonzalez MD 09/10/2024 2:05 PM EDT - 09/10/2024 11:59 PM EDT [facility] [address] [place], [place] [address] [address] Acute left-sided low back pain without sciatica Discharge Disposition: Home or Self Care 09/10/2024 2:05 PM EDT - 09/10/2024 11:59 PM EDT [facility] [place] [phone] Mid back pain on left side Discharge Disposition: Home or Self Care 09/10/2024 1:30 PM EDT Office Visit Internal [facility] - [facility] [place] [phone] Jose Gonzalez MD Acute left-sided low back pain without sciatica (Primary Dx); Mid back pain on left side; Varicose veins of left lower extremity with pain 09/03/2024 [address]s [address] [place] [phone] oJse Gonzalez MD from Last 3 Months Immunizations Name Administration Dates Next Due Hepatitis B (Rppfjlf-C-Tfkzh , Recombivax HB-Adult) 19yo and older 08/09/2018,07/02/2018 Influenza Quadravalent, MDCK , 0.5ml, preservative free (Flucelvax) 6mo and older 11/24/2017 Influenza Quadravalent, MDCK , 0.5ml, with preservative (Flucelvax) 6mo and older 02/02/2017 Influenza, Unspecified 01/09/2020 Moderna SARS-CoV-2 COVID-19, mRNA, LNP-S, preservative free 03/26/2021 Tdap Tetanus diptheria acell ular pertussis (Boostrix; Adacel) 7yo and older 08/09/2018 Surgical History Surgery Date Site/Laterality Comments CHOLECYSTECTOMY PROCEDURE: VT CHOLECYSTECTOMY; COMMENT: sarah CERVICAL BIOPSY W/ LOOP ELECTRODE EXCISION 2013 PROCEDURE: VT CONIZATION CERVIX W/WO D&C RPR ELTRD EXC; COMMENT: [facility]if[facility] OTHER SURGICAL HISTORY 07/17/2016 PROCEDURE: LAPAROSCOPY, [...] care for your loved ones. For example, exceptional children teacher or elderly care for an older adult? [...] Description 01/16/2025 3:00 PM EDT Ancillary Procedure [facility] [address] [place] [id number] 11/07/2025 3:00 PM EDT Office Visit Internal Medicine - [address] [place] [address] Jose Gonzalez MD [address] [place] [address] Health Maintenance Due Date Last Done Comments Hepatitis B Vaccines (3 of 3 - 19+ 3-dose series) 01/01/2019 08/09/2018, 07/02/2018 Depression Screening 03/20/2024 Cervical Cancer Screening: Pap Smear 11/10/2024 11/10/2021 COVID-19 Vaccine ( - 2024- season) 2024 03/26/2021, 07/10/2020, 06/12/2020 Influenza Vaccine (#1) 2024 , 01/04/2023, 01/04/2022, [...] Signed Date: 09/10/2024 14:29 ET Workstation ID: [id number] Transcribed By: Self Edit Transcribed Date: 09/10/2024 [...] Signed Date: 09/10/2024 14:29 ET Workstation ID: [id number] Transcribed By: Self Edit Transcribed Date: 09/10/2024 [...] Signed Date: 09/10/2024 14:29 ET Workstation ID: [id number] Transcribed By: Self Edit Transcribed Date: 09/10/2024 [...] Signed Date: 09/10/2024 14:29 ET Workstation ID: [id number] Transcribed By: Self Edit Transcribed Date: 09/10/2024 [...] Signed Date: 05/14/2024 09:07 ET Workstation ID: [id number] Transcribed By: Self Edit Transcribed Date: 05/14/2024 [...] concern. 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 TISSUE DENSITY: The breasts are heterogeneously [...] concern. 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 TISSUE DENSITY: The breasts are heterogeneously [...] Signed Date: 05/14/2024 09:07 ET Workstation ID: [id number] Transcribed By: Self Edit Transcribed Date: 05/14/2024 09:00 ET us Jose Gonzalez MD IMG BI PROCEDURES Final Result * (ABNORMAL) Lipid panel with reflex to direct LDL (05/07/2024 4:36 PM EST) Cholesterol 199 0 - 200 mg/dL LAB CHEMISTRY METHOD 05/07/2024 7:42 PM EST [facility] Triglycerides 92 0 - 150 mg/dL LAB CHEMISTRY METHOD 05/07/2024 7:42 PM EST [facility] HDL 56 >=40 mg/dL LAB CHEMISTRY METHOD 05/07/2024 7:42 PM EST [facility] LDL Calculated 125(H) 0 - 100 mg/dL LAB CHEMISTRY METHOD 05/07/2024 7:42 PM EST [facility] VLDL Cholesterol [place] 18.4 mg/dL LAB CHEMISTRY METHOD 05/07/2024 7:42 PM EST [facility] Non HDL Chol. (LDL+VLDL) 143 <145 mg/dL LAB CHEMISTRY METHOD 05/07/2024 7:42 PM EST [facility] Chol/HDL Ratio 3.6 0.0 - 4.4 LAB CHEMISTRY METHOD 05/07/2024 7:42 PM EST [facility] Blood Venous blood specimen / Unknown Venipuncture / Unknown 05/07/2024 4:36 PM EST 05/07/2024 4:36 PM EST us Jose Gonzalez MD LAB BLOOD ORDERABLES Final Resu lt [facility] [address] [place] [address], [place] [phone] * (ABNORMAL) Comprehensive metabolic panel (05/07/2024 4:36 PM EST) Sodium 135 133 - 145 mmol/L LAB CHEMISTRY METHOD 05/07/2024 7:42 PM EST [facility] Potassium 4.4 3.5 - 5.5 mmol/L LAB CHEMISTRY METHOD 05/07/2024 7:42 PM [facility] Chloride 101 96 - 110 mmol/L LAB CHEMISTRY METHOD 05/07/2024 7:42 PM [facility] CO2 30 21 - 32 mmol/L LAB CHEMISTRY METHOD 05/07/2024 7:42 PM [facility] Anion Gap 4 3 - 11 LAB CHEMISTRY METHOD 05/07/2024 7:42 PM [facility] Glucose 75 70 - 100 mg/dL LAB CHEMISTRY METHOD 05/07/2024 7:42 PM [facility] BUN 7 5 - 25 mg/dL LAB CHEMISTRY METHOD 05/07/2024 7:42 PM [facility] Creatinine 0.73 0.50 - 1.10 mg/dL LAB CHEMISTRY METHOD 05/07/2024 7:42 PM [facility] eGFR 106 >=60 mL/min/1. 73m2 LAB CHEMISTRY METHOD 05/07/2024 7:42 PM [facility] Comment:Calculation based on the Chronic Kidney Disease Epidemiology Collaboration (CKD-EPI) equation refit without adjustment for race. BUN/Creatinine Ratio 9.6 LAB CHEMISTRY METHOD 05/07/2024 7:42 PM [facility] Calcium 9.7 8.5 - 10.5 mg/dL LAB CHEMISTRY METHOD 05/07/2024 7:42 PM [facility] AST (SGOT) 15 10 - 42 unit/L LAB CHEMISTRY METHOD 05/07/2024 7:42 PM [facility] ALT (SGPT) 24 10 - 60 unit/L LAB CHEMISTRY METHOD 05/07/2024 7:42 PM [facility] Alkaline Phosphatase 57 42 - 121 unit/L LAB CHEMISTRY METHOD 05/07/2024 7:42 PM [facility] Total Protein 8.1(H) 6.0 - 8.0 g/dL LAB CHEMISTRY METHOD 05/07/2024 7:42 PM EST [facility] Albumin 4.4 3.2 - 5.0 g/dL LAB CHEMISTRY METHOD 05/07/2024 7:42 PM EST [facility] Total Bilirubin 0.5 0.0 - 1.4 mg/dL LAB CHEMISTRY METHOD 05/07/2024 7:42 PM EST [facility] Blood Venous blood specimen / Unknown Venipuncture / Unknown 05/07/2024 4:36 PM EST 05/07/2024 4:36 PM EST Jose Gonzalez MD LAB BLOOD ORDERABLES Final Resu lt [facility] [address] [place] [address], * HIV Screening (09/15/2023) HIV Screening Abstracted Historical Provider HEALTH MAINTENANCE Final Result * Hepatitis C Screening (09/15/2023) Pathologist [facility] Hepatitis C Screening Abstracted Historical Provider HEALTH MAINTENANCE Final Result * Pap Smear (11/10/2021) Pathologist [facility] Pap smear No interpretation , abstracted Historical Provider HEALTH MAINTENANCE Final Result from Last 3 Months or Most Recently Relevant to Health Maintenance Insurance [facility] Care Teams Seamark Advanced Operator Maintainer Relationship Specialty Start Date End Date Jose Gonzalez MD [address] [facility] [place] [address] PCP - General Internal Medicine 03/15/24
== END 2024-11-26 15:20 | disposition home or self-care (01) ==
LOC: HO.HUSH 14:15
PROVIDERS: PCP Internal Medicine; Visit Provider Urology
DX: Z13.9 Encounter for screening, unspecified (principal)

== ENCOUNTER → 2024-11-26 14:15 | Outpatient (BNVA) | payer OTHER, SELFPAY | PROVIDERS: PCP Internal Medicine; Visit Provider Urology | DX: N39.3 Stress incontinence (female) (male) (principal); Z13.9 Encounter for screening, unspecified | CPT/HCPCS: 51798; 81003; 99202 ==

== ENCOUNTER 2024-11-28 15:15 | Outpatient (REF) | payer OTHER, SELFPAY ==
--- NOTE | ~2024-11-28 | US_ITS ---
CLINICAL HISTORY: R93.89 - Abnormal findings on diagnostic imaging of other specified body... --- Additional Notes or Special Instructions: follow up CT scan US pelvis transabdominal and transvaginal Comparison: 08/18/2022 11:14 AM EDT: US TRANSVAGINAL Findings: Transabdominal scanning performed for overall anatomy. Transvaginal scanning performed for additional detail. Anteverted uterus is 7.6 cm length. Normal myometrium. Endometrium 7.0 mm thickness. Right ovary 3 x 1.9 x 2.2 cm. Left ovary 1.7 x 1.6 x 1.3 cm. Normal color Doppler of both ovaries. No free fluid. IMPRESSION: 1. Normal pelvic ultrasound This document has been electronically signed by: Cassuis Nova MD on 11/29/2024 08:51:40
== END 2024-11-28 15:16 | disposition home or self-care (01) ==
LOC: HO.US 15:15
PROVIDERS: PCP Internal Medicine; Visit Provider Advanced Practice Midwife
DX: R93.89 Abnormal findings on diagnostic imaging of other specified body structures (principal)
CPT/HCPCS: 76830; 76856

== ENCOUNTER → 2024-11-28 15:17 | Outpatient (BNV) | payer OTHER, SELFPAY | PROVIDERS: PCP Internal Medicine; Visit Provider Specialist | DX: R93.49 Abnormal radiologic findings on diagnostic imaging of other urinary organs (principal) | CPT/HCPCS: 76830; 76856 ==

== ENCOUNTER 2025-01-13 14:20 | Outpatient (AMB) | payer OTHER, SELFPAY ==
--- NOTE | 2025-01-13 14:43 | MHC.OFFVIS ---
Intake Visit Reasons: Follow up/incontinence Intake Note: Patient is present for follow up/urinary incontinence Urology Medication:None Blood Thinners:none Antibiotic Allergy:Penicillin,Vancomycin Computer Numerical Control Programmer Required: No Accompanied by: Self / Same As Patient Allergies vancomycin (Vancomycin) Allergy (Mild, Verified 01/13/25 14:44) HIVES penicillin V Allergy (Unknown, Verified 01/13/25 14:44) hives, swelling Promethazine HCl Allergy (Unknown, Uncoded 06/20/21 17:54) hives Propylene Glycol Allergy (Unknown, Uncoded 06/20/21 17:54) severe acne Povidone Iodine Swabstick Adverse Reaction (Unknown, Uncoded 06/20/21 17:54) rash HPI Comments Details: 01/13/2025-Yesi is a 44-year-old female who presents in follow-up with complaints of stress urinary incontinence. Urinalysis trace blood. History of Present Illness The patient is a 44-year-old female presenting with stress urinary incontinence. She reports experiencing bladder leakage for approximately six to seven months, although she suspects it may have been present for a longer duration. The incontinence occurs primarily during physical activities such as walking, exercising, and laughing, which has led her to discontinue gym activities. The patient attempted physical therapy aimed at strengthening pelvic muscles but did not complete the treatment and observed no improvement. She expresses concern about invasive procedures and has not previously undergone any surgical interventions. Results - Urinalysis: Trace blood Plan 1. Stress Urinary Incontinence - Plan to perform an ultrasound to evaluate the kidneys and bladder. - Consideration of urethral bulking with gel as a less invasive treatment option. - Discussion of potential use of a sling procedure if necessary. - Follow-up with cystoscopy and pelvic exam to further assess the condition. 11/26/24--Yesi is a pleasant female. She is a patient of . She is seen for the following urologic conditions - stress incontinence Progressive Wearing 2 pads per day Gynecologic history no prolonged labor Discussed options including pelvic floor exercises versus bulkamaid versus sling Referral to Dr. Farris for full assessment [facility] Medical History Incontinence Abnormal finding on CT scan Hypertension Abnormal Pap smear of cervix Surgical History H/O LEEP History of cholecystectomy Family History Maternal Grandfather Colon cancer Maternal Grandmother Diabetes Mother Diabetes Social History Alcohol intake: never Patient Tobacco Use Status: Never used Tobacco Current occupational status: employed Current occupation: [employer] Gender identity: Female Female Reproductive History Menstrual Age of Menarche: 14 Review of Systems Const All systems reviewed & are unremarkable except as noted in HPI and below Reports no additional complaints Eyes Reports no additional complaints ENT Reports no additional complaints Card Reports no additional complaints Resp Reports no additional complaints GI Reports no additional complaints Reports as per HPI Musc Reports no additional complaints Skin/Breast Reports system reviewed and no additional complaints, except as documented Neuro Reports no additional complaints Psych Reports no additional complaints Endo Reports no additional complaints Angel/Lymph Reports no additional complaints Aller/Immun Reports no additional complaints Office Procedures Post Void Residual Post Residual Void Post Void Residual (PVR): 0 [id number]-Dsmk Void Residual by ultrasound Results AMB Urinalysis, Automated UA Leukoctes 0 Keri/uL Last Edit by Ora Reddy on 01/13/25 17:03 UA Nitrite Negative Last Edit by Ora Reddy on 01/13/25 17:03 UA Urobilinogen 0.2 mg/dL Last Edit by Ora Reddy on 01/13/25 17:03 UA Protein 15 mg/dL Last Edit by Ora Reddy on 01/13/25 17:03 UA pH 6.0 Last Edit by Ora Reddy on 01/13/25 17:03 UA Blood 10 Akil/uL Last Edit by Ora Reddy on 01/13/25 17:03 UA Specific [place] 1.025 Last Edit by Ora Reddy on 01/13/25 17:03 UA Ketone Positive Last Edit by Ora Reddy on 01/13/25 17:03 UA Bilirubin 0 mg/dL Last Edit by Ora Reddy on 01/13/25 17:03 UA Glucose 0 mg/dL Last Edit by Ora Reddy on 01/13/25 17:03 Assessment & Plan Assessment & Plan (1) Stress incontinence: Code(s): N39.3 - Stress incontinence (female) (male) Category: Medical (2) Microscopic hematuria: Code(s): R31.29 - Other microscopic hematuria Category: Medical Orders: Orders Urine Culture Today N39.0 - Urinary tract infection, site not specified AMB Urinalysis Automated Today Z13.9 - Encounter for screening, unspecified AMB Post Void Residual by ultrasound Today N39.3 - Stress incontinence (female) (male), R31.29 - Other microscopic hematuria, R32 - Unspecified urinary incontinence Coding Diagnoses Stress incontinence N39.3 Microscopic hematuria R31.29 CPT Codes Post Residual Void - PVR CPT Code: 97097-Wfqs Void Residual by ultrasound ([id number])
--- OUTSIDE RECORDS SUMMARY | 2025-01-13 17:59 | XMS_ITS | Clinical Summary ---
Author Organization [place] [address] [facility] Address [address] [place] [address] Phone Care Team Providers Care Dope Pourer Name Role Phone Jose Gonzalez MD Primary Care Provider [phone] Allergies Active Allergy Reactions Criticality Noted Date [...] PM EDT [facility] [address] [place] [phone] Jose Gonzalez MD Encounter for annual physical exam (Primary Dx); Varicose veins of left lower extremity with pain; Mixed hyperlipidemia; Numbness in left leg from Last 3 Months Immunizations Immunization Administration Dates Next Due Hepatitis B (Ffjjimw-K-Epvat , Recombivax HB-Adult) 19yo and older 08/09/2018,07/02/2018 Influenza Quadravalent, MDCK , 0.5ml, preservative free (Flucelvax) 6mo and older 11/24/2017 Influenza Quadravalent, MDCK , 0.5ml, with preservative (Flucelvax) 6mo and older 02/02/2017 Influenza, Unspecified 01/09/2020 Moderna SARS-CoV-2 COVID-19, mRNA, LNP-S, preservative free 03/26/2021 Tdap Tetanus diptheria acell ular pertussis (Boostrix; Adacel) 7yo and older 08/09/2018 Surgical History Surgery Date Site/Laterality Comments CHOLECYSTECTOMY PROCEDURE: [place] CHOLECYSTECTOMY; COMMENT: [place] CERVICAL BIOPSY W/ LOOP ELECTRODE EXCISION 2013 PROCEDURE: [place] CONIZATION CERVIX W/WO D&C RPR ELTRD EXC; COMMENT: [facility] midwifery OTHER SURGICAL HISTORY 07/17/2016 [...] Record ed Within the last 3 months, rashid angel many times did you visit the emergency [...] for your loved ones. For example, child and family counselor or elderly care for an older adult? [...] Date Recorded What is your living situation? Unrecognized valu e 11/05/2024 Comments No Sex and Gender Information [...] Description 01/16/2025 3:00 PM EDT Ancillary Procedure [facility] - [address] [place] [address] 11/07/2025 3:00 PM EDT Office Visit Internal Medicine - [facility] [address] [facility] [place] [address] Jose Gonzalez MD [address] [place] [address] Health Maintenance Due Date Last Done Comments HPV Vaccines (1 - 3-dose SCDM series) 2009 Hepatitis B Vaccines (3 of 3 - [...] Td or Tdap) 05/11/2033 05/11/2023, 08/09/2018, 04/24/2012 RSV Immunization Adult Patients (1 - 1-dose 75+ series) 2057 HIV Screening Completed 09/15/2023 Hepatitis C Screening [...] Procedure Name Priority Date/Time Associated Diagnosis Comments EXTERNAL ULTRASOUND REPORT 11/29/2024 MG MAMMO DIGITAL DIAGNOSTIC W MAXIMILIANO RIGHT Routine 05/14/2024 9:08 AM EST Mass of upper inner quadrant of right breast COMPREHENSIVE METABOLIC PANEL Routine 05/07/2024 4:36 PM EST Mass of upper inner quadrant of right breast LIPID PANEL WITH REFLEX TO DIRECT LDL Routine 05/07/2024 4:36 PM EST Hyperlipidemia, unspecified hyperlipidemia type HEPATITIS C SCREENING Routine 09/15/2023 HIV SCREENING Routine 09/15/2023 PAP SMEAR Routine 11/10/2021 from Last 3 Months or Most Recently Relevant to Health Maintenance Results * External Ultrasound Report (11/29/2024) Anatomical Region Laterality Modality Ultrasound us Provider [facility] Final Result * MG Mammo Digital [...] Signed Date: 05/14/2024 09:07 ET Workstation ID: [id number] Transcribed By: Self Edit Transcribed Date: 05/14/2024 [...] concern. 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 TISSUE DENSITY: The breasts are heterogeneously [...] concern. 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 TISSUE DENSITY: The breasts are heterogeneously [...] Signed Date: 05/14/2024 09:07 ET Workstation ID: [id number] Transcribed By: Self Edit Transcribed Date: 05/14/2024 09:00 ET Jose Gonzalez MD IM BI PROCEDURES Final Result * (ABNORMAL) Lipid panel with reflex to direct LDL (05/07/2024 4:36 PM EST) Cholesterol 199 0 - 200 mg/dL LAB CHEMISTRY METHOD 05/07/2024 7:42 PM EST [facility] Triglycerides 92 0 - 150 mg/dL LAB CHEMISTRY METHOD 05/07/2024 7:42 PM EST [facility] HDL 56 >=40 mg/dL LAB CHEMISTRY METHOD 05/07/2024 7:42 PM EST [facility] LDL Calculated 125(H) 0 - 100 mg/dL LAB CHEMISTRY METHOD 05/07/2024 7:42 PM [facility] VLDL Cholesterol Morteza 18.4 mg/dL LAB CHEMISTRY METHOD 05/07/2024 7:42 PM [facility] Non HDL Chol. (LDL+VLDL) 143 <145 mg/dL LAB CHEMISTRY METHOD 05/07/2024 7:42 PM [facility] Chol/HDL Ratio 3.6 0.0 - 4.4 LAB CHEMISTRY METHOD 05/07/2024 7:42 PM [facility] Blood Venous blood specimen / Unknown Venipuncture / Unknown 05/07/2024 4:36 PM EST 05/07/2024 4:36 PM EST us Jose Gonzalez MD LAB BLOOD ORDERABLES Final Resu lt [facility] [address] [place] [address], [place] [phone] * (ABNORMAL) Comprehensive metabolic panel (05/07/2024 4:36 PM EST) Sodium 135 133 - 145 mmol/L LAB CHEMISTRY METHOD 05/07/2024 7:42 PM [facility] Potassium 4.4 3.5 - 5.5 mmol/L LAB CHEMISTRY METHOD 05/07/2024 7:42 PM [facility] Chloride 101 96 - 110 mmol/L LAB CHEMISTRY METHOD 05/07/2024 7:42 PM [facility] CO2 30 21 - 32 mmol/L LAB CHEMISTRY METHOD 05/07/2024 7:42 PM [facility] Anion Gap 4 3 - 11 LAB CHEMISTRY METHOD 05/07/2024 7:42 PM [facility] Glucose 75 70 - 100 mg/dL LAB CHEMISTRY METHOD 05/07/2024 7:42 PM [facility] BUN 7 5 - 25 mg/dL LAB CHEMISTRY METHOD 05/07/2024 7:42 PM [facility] Creatinine 0.73 0.50 - 1.10 mg/dL LAB CHEMISTRY METHOD 05/07/2024 7:42 PM [facility] eGFR 106 >=60 mL/min/1. 73m2 LAB CHEMISTRY METHOD 05/07/2024 7:42 PM [facility] Comment:Calculation based on the Chronic Kidney Disease Epidemiology Collaboration (CKD-EPI) equation refit without adjustment for race. BUN/Creatinine Ratio 9.6 LAB CHEMISTRY METHOD 05/07/2024 7:42 PM [facility] Calcium 9.7 8.5 - 10.5 mg/dL LAB CHEMISTRY METHOD 05/07/2024 7:42 PM [facility] AST (SGOT) 15 10 - 42 unit/L LAB CHEMISTRY METHOD 05/07/2024 7:42 PM [facility] ALT (SGPT) 24 10 - 60 unit/L LAB CHEMISTRY METHOD 05/07/2024 7:42 PM [facility] Alkaline Phosphatase 57 42 - 121 unit/L LAB CHEMISTRY METHOD 05/07/2024 7:42 PM [facility] Total Protein 8.1(H) 6.0 - 8.0 g/dL LAB CHEMISTRY METHOD 05/07/2024 7:42 PM [facility] Albumin 4.4 3.2 - 5.0 g/dL LAB CHEMISTRY METHOD 05/07/2024 7:42 PM [facility] Total Bilirubin 0.5 0.0 - 1.4 mg/dL LAB CHEMISTRY METHOD 05/07/2024 7:42 PM [facility] Blood Venous blood specimen / Unknown Venipuncture / Unknown 05/07/2024 4:36 PM EST 05/07/2024 4:36 PM EST us Jose Gonzalez MD LAB BLOOD ORDERABLES Final Resu lt [facility] [address] [place] [address], * HIV Screening (09/15/2023) HIV Screening Abstracted Historical Provider HEALTH MAINTENANCE Final Result * Hepatitis C Screening (09/15/2023) Hepatitis C Screening Abstracted Historical Provider HEALTH MAINTENANCE Final Result * Pap Smear (11/10/2021) Pap smear No interpretation , abstracted Historical Provider HEALTH MAINTENANCE Final Result from Last 3 Months or Most Recently Relevant to Health Maintenance Insurance [facility] Care Teams Dope Pourer Relationship Specialty Start Date End Date Jose Gonzalez MD [facility] [place] [id number] PCP - General Internal Medicine 03/15/24
== END 2025-01-13 15:12 | disposition home or self-care (01) ==
LOC: HO.HUSH 14:21
PROVIDERS: PCP Internal Medicine; Visit Provider Urology
DX: Z13.9 Encounter for screening, unspecified (principal)

== ENCOUNTER 2025-01-13 14:20 | Outpatient (REF) | payer OTHER, SELFPAY | END 2025-01-13 14:21 | disposition home or self-care (01) | LOC: HO.LAB 14:20 | PROVIDERS: PCP Internal Medicine; Visit Provider Urology | DX: N39.3 Stress incontinence (female) (male) (principal); R31.29 Other microscopic hematuria; Z13.89 Encounter for screening for other disorder | CPT/HCPCS: 51798; 81003; 87086 ==